=== PATIENT | male | born 1960 | race African-American/Black ===

== ENCOUNTER 2019-10-24 19:19 | Inpatient (IN) | payer OTHER, MEDICAID ==
[~2019-10-24] VITALS: Ht 182.9 cm; Wt 91.6 kg
[~2019-10-24 19:19] MED LIST: CALCIUM CHLORIDE 1GM/10ML SYR IV ONE; DEXTROSE 50% WATER 50ML VIAL IV ONE; EPINEPHRINE 0.1MG/ML (1:10,000) 10ML SYR ONE; ETOMIDATE 2MG/ML 10ML VIAL IV ONE; SODIUM BICARBONATE 8.4% MEQ/ML 50ML VIAL IV ONE; SODIUM CHLORIDE 0.9% 10ML VIAL ONE; VECURONIUM BROMIDE 10 MG/VIAL IV ONE
[2019-10-24] MEDS ORDERED: SODIUM CHLORIDE 0.9% 1,000 ML IV ONE (20:00)
[2019-10-24] MEDS ORDERED: MIDAZOLAM HCL 50 MG in DEXTROSE 5% WATER 40 ML IV ONE ×2 (20:00→20:15)
[2019-10-24 20:15] LABS: BASOPHILS % 0.3 % (0.0-2.0); HEMATOCRIT. 46.4 % (42.0-52.0); LYMPHOCYTES % 12.8 % (20.0-50.0); MEAN CORPUSCULAR HEMOGLOBIN 28.3 pg (28.0-32.0); MEAN CORPUSCULAR VOLUME 87.9 fL (80.0-94.0); MONOCYTES % 6.8 % (2.0-8.0); NEUTROPHILS % 80.1 % (40.0-76.0); PLATELET 103 x1000/uL (130-400); RED BLOOD CELL COUNT 5.28 mill/uL (4.7-6.1); RED CELL DISTRIBUTION WIDTH 17.5 % (11.6-14.6)
[2019-10-24 20:19] LABS: CLARITY URINE CLOUDY (CLEAR); COLOR URINE ORANGE (YELLOW); KETONES URINE NEGATIVE (NEGATIVE); LEUKOCYTE ESTERASE URINE NEGATIVE (NEGATIVE); NITRITE URINE POSITIVE (NEGATIVE); OCCULT BLOOD URINE TRACE (NEGATIVE); PROTEIN URINE 2+ (NEGATIVE); SPECIFIC GRAVITY URINE 1.015 (1.005-1.030)
[2019-10-24 20:31] LABS: INR 2.6; PROTHROMBIN TIME 25.4 sec (9.6-11.0)
[2019-10-24 20:39] LABS: *AMPHETAMINES SCREEN URINE NEGATIVE (NEGATIVE)
[2019-10-24 20:41] LABS: *BARBITURATES SCREEN URINE NEGATIVE (NEGATIVE); *BENZODIAZEPINES SCREEN URINE NEGATIVE (NEGATIVE); *COCAINE SCREEN URINE NEGATIVE (NEGATIVE); CANNABINOID URINE SCREEN NEGATIVE (NEGATIVE); METHADONE URINE SCREEN NEGATIVE (NEGATIVE); OPIATES URINE SCREEN NEGATIVE (NEGATIVE); PHENCYCLIDINE URINE SCREEN NEGATIVE (NEGATIVE)
[2019-10-24] MEDS ORDERED: CEFTRIAXONE 1 G PREMIX 50 ML IV ONE (22:00)
[2019-10-24] MEDS ORDERED: NOREPINEPHRINE 4 MG in DEXT 5% WATER 246 ML IV ONE ×2 (22:00→22:15)
[2019-10-24 22:09] LABS: CHLORIDE 101 mEq/L (98-107)
[2019-10-24 22:14] LABS: ETHANOL BLOOD < 10 mg/dL
[2019-10-24] MEDS ORDERED: DEXTROSE 50% WATER 50ML SYRINGE IV ONE ×3 (22:23→23:30)
[2019-10-24] MEDS ORDERED: DEXT 10% WATER 1,000 ML IV ONE (22:30)
[2019-10-24] MEDS ORDERED: DOPAMINE 400MG/250ML PREMIX 250 ML IV ONE (23:30)
[2019-10-24] MEDS ORDERED: VANCOMYCIN 1 G PREMIX 200 ML IV SCH (23:45)
[2019-10-24] MEDS ORDERED: LORAZEPAM 2MG/ML CPJ IV PRN (23:45)
[2019-10-24] MEDS ORDERED: HYDRALAZINE 20MG/ML VIAL IV PRN (23:45)
[2019-10-24] MEDS ORDERED: GUAIFENESIN 200MG/10ML SUGAR FREE UDC PO PRN (23:45)
[2019-10-24] MEDS ORDERED: BLOOD SUGAR DIAGNOSTIC STRIP TEST SCH (23:45)
[2019-10-24] MEDS ORDERED: NOREPINEPHRINE 4MG/250ML PMX 250 ML IV SCH (23:45)
[2019-10-24] MEDS ORDERED: MAGNESIUM/ALUMINUM HYDROXIDE/SIMETHICONE 30ML UDC PO PRN (23:45)
[2019-10-24] MEDS ORDERED: HYDROCODONE/ACETAMINOPHEN 10/325MG TABLET PO PRN (23:45)
[2019-10-24] MEDS ORDERED: MORPHINE SULFATE 2 MG/ML CPJ (NOT FOR IM USE) IV PRN (23:45)
[2019-10-24] MEDS ORDERED: PIPERACILLIN/TAZ 3.375G PREMIX 50 ML IV SCH (23:45)
[2019-10-24] MEDS ORDERED: ONDANSETRON HCL 4MG/2ML INJ IV PRN (23:45)
[2019-10-24] MEDS ORDERED: NA PHOS,M-B/NA PHOS,DI-BA ENEMA 118ML PR PRN (23:45)
[2019-10-24] MEDS ORDERED: CLONIDINE 0.1MG TABLET PO PRN (23:45)
[2019-10-25] VITALS (60 sets, daily range): BP systolic 83–131; BP diastolic 26–77
[2019-10-25] MEDS: DEXT 10% WATER 1,000 ML IV SCH ×2 (00:25→21:15)
[2019-10-25] MEDS ORDERED: PIPERACILLIN/TAZ 3.375G PREMIX 50 ML IV NR (00:30)
[2019-10-25] MEDS ORDERED: SODIUM CHLORIDE 0.9% 500 ML IV ONE (00:45)
[2019-10-25] MEDS ORDERED: DOPAMINE 400MG/250ML PREMIX 250 ML IV ONE (03:15)
[2019-10-25] MEDS ORDERED: NOREPINEPHRINE 4 MG in DEXT 5% WATER 246 ML IV ONE (03:30)
[2019-10-25] MEDS ORDERED: NOREPINEPHRINE 4 MG in DEXTROSE 5% WATER 250 ML IV PRN (04:00)
[2019-10-25] MEDS: INSULIN LISPRO 100 UNITS/ML SUBCUT SCH ×5 (04:00→20:00)
[2019-10-25] MEDS: BLOOD SUGAR DIAGNOSTIC STRIP TEST SCH ×5 (04:37→18:16)
[2019-10-25 05:20] LABS: BG CARBOXYHEMOGLOBIN 1.1 % (0.5-1.5); BG DEOXYHEMOGLOBIN 12.6 % (0.0-5.0); BG FRACTION INSPIRED OXYGEN 100; BG HCO3 ACT 30.1 mmol/L (22.0-26.0); BG METHEMOGLOBIN 0.3 % (0.0-1.5); BG OXYGEN SATURATION 87.2 % (92.0-98.5); BG PCO2 55.8 mmHg (35.0-45.0); BG PO2 58.1 mmHg (75.0-100.0); BG SAMPLE SITE RIGHT RADIAL; BG TIDAL VOLUME(mL) 600 mL; BG TOTAL HEMOGLOBIN 15.4 g/dL (12.0-18.0); BG VENT MODE VENT - A/C; BG VENT RATE 16 set
[2019-10-25] MEDS ORDERED: VANCOMYCIN 1 G PREMIX 200 ML IV NR (06:00)
[2019-10-25] MEDS: IPRATROPIUM/ALBUTEROL 0.5-3(2.5)MG/3ML NEB NEB PRN (08:13)
[2019-10-25] MEDS: PIPERACILLIN/TAZ 3.375G PREMIX 50 ML IV SCH ×3 (08:42→18:16)
[2019-10-25] MEDS: SODIUM CHLORIDE 0.9% INJ 3ML FLUSH IVF SCH ×3 (08:44→21:15)
[2019-10-25 08:53] LABS: CHLORIDE 102 mEq/L (98-107)
[2019-10-25 08:56] LABS: HEMATOCRIT. 47.7 % (42.0-52.0); HEMOGLOBIN. 14.9 g/dL (14.0-18.0); MEAN CORPUSCULAR HEMOGLOBIN 27.7 pg (28.0-32.0); MEAN CORPUSCULAR VOLUME 88.5 fL (80.0-94.0); RED BLOOD CELL COUNT 5.38 mill/uL (4.7-6.1); RED CELL DISTRIBUTION WIDTH 17.4 % (11.6-14.6)
[2019-10-25 09:00] LABS: LDL CHOLESTEROL 20 mg/dL (5-100)
[2019-10-25 09:01] LABS: HDL CHOLESTEROL 36 mg/dL (40-59)
[2019-10-25] MEDS: PANTOPRAZOLE SODIUM 40 MG/VIAL IV SCH (09:01)
[2019-10-25 09:02] LABS: CREATINE KINASE 655 IU/L (39-308)
[2019-10-25] MEDS: DEXTROSE 50% WATER 50ML SYRINGE IV PRN ×2 (09:05→10:22)
[2019-10-25] MEDS: PHENYLEPHRINE 40 MG in DEXT 5% WATER 246 ML IV PRN ×4 (09:27→20:39)
[2019-10-25 10:26] LABS: T4 FREE 0.86 ng/dL (0.76-1.46)
[2019-10-25] MEDS ORDERED: PROPOFOL 10MG/ML 100ML 100 ML IV PRN (10:30)
[2019-10-25 11:16] LABS: PLATELET 46 x1000/uL (130-400); PLATELET ESTIMATE MARKEDLY DECREASED
[2019-10-25] MEDS: NOREPINEPHRINE 16 MG in DEXT 5% WATER 234 ML IV PRN ×2 (12:12→17:08)
[2019-10-25] MEDS: IPRATROPIUM/ALBUTEROL 0.5-3(2.5)MG/3ML NEB HHN SCH ×3 (12:30→20:01)
[2019-10-25 16:13] LABS: HEMATOCRIT. 45.8 % (42.0-52.0); HEMOGLOBIN. 14.9 g/dL (14.0-18.0); MEAN CORPUSCULAR HEMOGLOBIN 28.2 pg (28.0-32.0); MEAN CORPUSCULAR VOLUME 86.8 fL (80.0-94.0); MEAN PLATELET VOLUME 11.1 fl (7.4-10.4); PLATELET 51 x1000/uL (130-400); RED BLOOD CELL COUNT 5.27 mill/uL (4.7-6.1); RED CELL DISTRIBUTION WIDTH 17.6 % (11.6-14.6)
[2019-10-25 16:32] LABS: CREATINE KINASE 818 IU/L (39-308)
[2019-10-25 16:33] LABS: CREATINE KINASE MB FRACTION 7.9 ng/mL (0.5-3.6)
[2019-10-25 17:08] LABS: NUCLEATED RED BLOOD CELLS 3 /100 WBC; PLATELET ESTIMATE MARKEDLY DECREASED
[2019-10-25] MEDS: VANCOMYCIN 1250MG in DEXTROSE 5% WATER 250ML IV SCH (20:46)
[2019-10-25] MEDS ORDERED: VANCOMYCIN 1250MG in DEXTROSE 5% WATER 250ML IV SCH (21:00)
[2019-10-25] MEDS: THIAMINE HCL 100MG TABLET PO SCH (21:15)
[2019-10-25] MEDS ORDERED: DEXT 10% WATER 1,000 ML IV SCH (22:30)
[2019-10-26] VITALS (90 sets, daily range): BP systolic 66–133; BP diastolic 24–96
[2019-10-26] MEDS: IPRATROPIUM/ALBUTEROL 0.5-3(2.5)MG/3ML NEB HHN SCH ×6 (00:03→20:22)
[2019-10-26] MEDS: DEXTROSE 50% WATER 50ML SYRINGE IV PRN ×5 (00:05→20:30)
[2019-10-26] MEDS: BLOOD SUGAR DIAGNOSTIC STRIP TEST SCH ×10 (00:06→17:36)
[2019-10-26] MEDS: PIPERACILLIN/TAZ 3.375G PREMIX 50 ML IV SCH ×3 (00:06→12:51)
[2019-10-26] MEDS: PHENYLEPHRINE 40 MG in DEXT 5% WATER 246 ML IV PRN ×5 (01:16→21:38)
[2019-10-26] MEDS: NOREPINEPHRINE 16 MG in DEXT 5% WATER 234 ML IV PRN ×2 (03:07→12:31)
[2019-10-26] MEDS ORDERED: VASOPRESSIN 10 UNIT in SODIUM CHLORIDE 0.9% 99.5 ML IV PRN (04:00)
[2019-10-26] MEDS: INSULIN LISPRO 100 UNITS/ML SUBCUT SCH ×6 (04:00→20:00)
[2019-10-26 06:10] LABS: HEMATOCRIT. 45.3 % (42.0-52.0); HEMOGLOBIN. 14.6 g/dL (14.0-18.0); MEAN CORPUSCULAR HEMOGLOBIN 28.1 pg (28.0-32.0); RED CELL DISTRIBUTION WIDTH 17.5 % (11.6-14.6)
[2019-10-26] MEDS: SODIUM CHLORIDE 0.9% INJ 3ML FLUSH IVF SCH ×3 (06:24→22:00)
[2019-10-26 06:35] LABS: CHLORIDE 100 mEq/L (98-107)
[2019-10-26 06:55] LABS: INR 2.5; PROTHROMBIN TIME 24.9 sec (9.6-11.0)
[2019-10-26 08:11] LABS: BG BASE EXCESS 3.3 mmol/L (-2.0-2.0); BG CARBOXYHEMOGLOBIN 0.4 % (0.5-1.5); BG DEOXYHEMOGLOBIN 2.9 % (0.0-5.0); BG FRACTION INSPIRED OXYGEN 100; BG HCO3 ACT 29.5 mmol/L (22.0-26.0); BG METHEMOGLOBIN 0.3 % (0.0-1.5); BG OXYGEN SATURATION 97.1 % (92.0-98.5); BG OXYHEMOGLOBIN 96.4 % (94.0-97.0); BG PCO2 51.1 mmHg (35.0-45.0); BG PH 7.379 (7.350-7.450); BG PO2 97.5 mmHg (75.0-100.0); BG SAMPLE SITE RIGHT RADIAL; BG TIDAL VOLUME(mL) 600 mL; BG TOTAL HEMOGLOBIN 14.4 g/dL (12.0-18.0); BG VENT MODE VENT - A/C; BG VENT RATE 16 set
[2019-10-26] MEDS ORDERED: PROPOFOL 10MG/ML 100ML 100 ML IV PRN (09:00)
[2019-10-26] MEDS: PANTOPRAZOLE SODIUM 40 MG/VIAL IV SCH (09:27)
[2019-10-26] MEDS: VANCOMYCIN 1250MG in DEXTROSE 5% WATER 250ML IV SCH ×2 (09:27→20:30)
[2019-10-26] MEDS: THIAMINE HCL 100MG TABLET PO SCH (09:27)
[2019-10-26] MEDS: MIDODRINE HCL 5MG TABLET PO SCH ×3 (09:47→17:36)
[2019-10-26 10:22] LABS: PLATELET 26 x1000/uL (130-400)
[2019-10-26 10:40] LABS: NUCLEATED RED BLOOD CELLS 1 /100 WBC
[2019-10-26 10:41] LABS: PLATELET ESTIMATE MARKEDLY DECREASED
[2019-10-26] MEDS: DEXTROSE 20% WATER 500 ML IV SCH ×2 (11:09→21:19)
[2019-10-26] MEDS: PIPERACILLIN/TAZOBACTAM 3.375 G in DEXT 5% WATER 100 ML IV SCH (17:35)
[2019-10-27] VITALS (94 sets, daily range): BP systolic 49–135; BP diastolic 23–88
[2019-10-27] MEDS: PIPERACILLIN/TAZOBACTAM 3.375 G in DEXT 5% WATER 100 ML IV SCH ×4 (00:02→18:21)
[2019-10-27] MEDS: IPRATROPIUM/ALBUTEROL 0.5-3(2.5)MG/3ML NEB HHN SCH ×6 (00:18→20:18)
[2019-10-27] MEDS: NOREPINEPHRINE 16 MG in DEXT 5% WATER 234 ML IV PRN (01:06)
[2019-10-27] MEDS: PHENYLEPHRINE 40 MG in DEXT 5% WATER 246 ML IV PRN ×4 (01:31→12:00)
[2019-10-27] MEDS: BLOOD SUGAR DIAGNOSTIC STRIP TEST SCH ×10 (02:00→20:22)
[2019-10-27] MEDS: INSULIN LISPRO 100 UNITS/ML SUBCUT SCH ×6 (04:00→20:00)
[2019-10-27 06:22] LABS: HEMATOCRIT. 43.4 % (42.0-52.0); HEMOGLOBIN. 14.1 g/dL (14.0-18.0); MEAN CORPUSCULAR VOLUME 86.3 fL (80.0-94.0); MEAN PLATELET VOLUME 9.7 fl (7.4-10.4); RED BLOOD CELL COUNT 5.02 mill/uL (4.7-6.1); RED CELL DISTRIBUTION WIDTH 17.9 % (11.6-14.6)
[2019-10-27] MEDS: SODIUM CHLORIDE 0.9% INJ 3ML FLUSH IVF SCH ×3 (06:22→22:03)
[2019-10-27 06:26] LABS: CHLORIDE 100 mEq/L (98-107)
[2019-10-27 06:35] LABS: PLATELET 11 x1000/uL (130-400)
[2019-10-27] MEDS: DEXTROSE 20% WATER 500 ML IV SCH ×2 (06:58→18:31)
[2019-10-27 10:36] LABS: BG BASE EXCESS 7.4 mmol/L (-2.0-2.0); BG DEOXYHEMOGLOBIN 1.5 % (0.0-5.0); BG FRACTION INSPIRED OXYGEN 100; BG HCO3 ACT 32.9 mmol/L (22.0-26.0); BG METHEMOGLOBIN 0.3 % (0.0-1.5); BG OXYGEN SATURATION 98.5 % (92.0-98.5); BG OXYHEMOGLOBIN 97.2 % (94.0-97.0); BG PCO2 49.2 mmHg (35.0-45.0); BG PH 7.443 (7.350-7.450); BG PO2 127.1 mmHg (75.0-100.0); BG SAMPLE SITE RIGHT RADIAL; BG TIDAL VOLUME(mL) 600 mL; BG TOTAL HEMOGLOBIN 14.6 g/dL (12.0-18.0); BG VENT MODE VENT - A/C; BG VENT RATE 16 set
[2019-10-27] MEDS: THIAMINE HCL 100MG TABLET PO SCH (11:42)
[2019-10-27] MEDS: MIDODRINE HCL 5MG TABLET PO SCH ×3 (11:43→18:30)
[2019-10-27 11:49] LABS: HEPATITIS B SURFACE ANTIGEN NEGATIVE
[2019-10-27 11:53] LABS: NUCLEATED RED BLOOD CELLS 2 /100 WBC; PLATELET ESTIMATE MARKEDLY DECREASED
[2019-10-27 12:18] LABS: HEPATITIS A AB IGM NEGATIVE (NEGATIVE)
[2019-10-27] MEDS ORDERED: VANCOMYCIN 1 G PREMIX 200 ML IV SCH (12:45)
[2019-10-27] MEDS ORDERED: FUROSEMIDE 40MG/4ML VIAL IVP SCH (12:45)
[2019-10-27] MEDS: CEFTRIAXONE 1 G PREMIX 50 ML IV SCH (13:30)
[2019-10-27] MEDS: VANCOMYCIN 1 G PREMIX 200 ML IV SCH ×2 (13:30→22:09)
[2019-10-27] MEDS: PANTOPRAZOLE SODIUM 40 MG/VIAL IV SCH (13:31)
[2019-10-27] MEDS ORDERED: CHLORHEXIDINE GLUCONATE 4% EXTERNAL USE TOP SCH ×2 (14:00→21:00)
[2019-10-27] MEDS ORDERED: PHENYLEPHRINE 80 MG in DEXT 5% WATER 492 ML IV PRN (18:27)
[2019-10-27] MEDS: DIPHENHYDRAMINE 50MG/ML VIAL IV PRN (22:09)
[2019-10-27] MEDS: PHENYLEPHRINE 80 MG in DEXT 5% WATER 492 ML IV PRN (22:30)
[2019-10-28] VITALS (94 sets, daily range): BP systolic 73–149; BP diastolic 25–113
[2019-10-28] MEDS: INSULIN LISPRO 100 UNITS/ML SUBCUT SCH
[2019-10-28] MEDS: IPRATROPIUM/ALBUTEROL 0.5-3(2.5)MG/3ML NEB HHN SCH ×6 (00:21→20:19)
[2019-10-28] MEDS: PIPERACILLIN/TAZOBACTAM 3.375 G in DEXT 5% WATER 100 ML IV SCH ×4 (00:59→17:27)
[2019-10-28] MEDS ORDERED: NOREPINEPHRINE 4 MG in DEXT 5% WATER 246 ML IV ONE (01:00)
[2019-10-28] MEDS ORDERED: INSULIN LISPRO 100 UNITS/ML SUBCUT PRN (02:30)
[2019-10-28] MEDS: BLOOD SUGAR DIAGNOSTIC STRIP TEST SCH ×9 (02:32→18:00)
[2019-10-28] MEDS: DEXTROSE 20% WATER 500 ML IV SCH (02:38)
[2019-10-28] MEDS: PHENYLEPHRINE 80 MG in DEXT 5% WATER 492 ML IV PRN ×3 (03:13→15:23)
[2019-10-28] MEDS: SODIUM CHLORIDE 0.9% INJ 3ML FLUSH IVF SCH ×3 (05:33→21:44)
[2019-10-28 05:55] LABS: HEMATOCRIT. 40.3 % (42.0-52.0); HEMOGLOBIN. 13.2 g/dL (14.0-18.0); MEAN CORPUSCULAR HEMOGLOBIN 27.8 pg (28.0-32.0); MEAN CORPUSCULAR VOLUME 84.9 fL (80.0-94.0); RED BLOOD CELL COUNT 4.74 mill/uL (4.7-6.1); RED CELL DISTRIBUTION WIDTH 17.6 % (11.6-14.6)
[2019-10-28] MEDS ORDERED: CEFAZOLIN 2,000 MG in DEXTROSE 5% WATER 50 ML IV SCH (06:00)
[2019-10-28] MEDS ORDERED: EPINEPHRINE 4 MG in DEXT 5% WATER 246 ML IV ONE (06:00)
[2019-10-28] MEDS ORDERED: NOREPINEPHRINE 4MG/250ML PMX 250 ML IV ONE (06:00)
[2019-10-28 06:02] LABS: CHLORIDE 96 mEq/L (98-107)
[2019-10-28 06:26] LABS: INR 1.9; PROTHROMBIN TIME 18.7 sec (9.6-11.0)
[2019-10-28 07:31] LABS: BG BASE EXCESS 7.9 mmol/L (-2.0-2.0); BG DEOXYHEMOGLOBIN 8.9 % (0.0-5.0); BG FRACTION INSPIRED OXYGEN 70; BG HCO3 ACT 34.2 mmol/L (22.0-26.0); BG METHEMOGLOBIN 0.2 % (0.0-1.5); BG OXYHEMOGLOBIN 89.9 % (94.0-97.0); BG PCO2 54.4 mmHg (35.0-45.0); BG PH 7.416 (7.350-7.450); BG SAMPLE SITE RIGHT RADIAL; BG TIDAL VOLUME(mL) 600 mL; BG TOTAL HEMOGLOBIN 13.8 g/dL (12.0-18.0); BG VENT MODE VENT - A/C; BG VENT RATE 16 set
[2019-10-28] MEDS: NOREPINEPHRINE 16 MG in DEXT 5% WATER 234 ML IV PRN (07:46)
[2019-10-28] MEDS: MIDODRINE HCL 5MG TABLET PO SCH ×3 (07:58→17:27)
[2019-10-28] MEDS: THIAMINE HCL 100MG TABLET PO SCH (07:58)
[2019-10-28 08:15] LABS: MEAN PLATELET VOLUME 9.3 fl (7.4-10.4); PLATELET ESTIMATE DECREASED
[2019-10-28 08:16] LABS: PLATELET 69 x1000/uL (130-400)
[2019-10-28] MEDS: WATER DEXTROSE IV SCH ×2 (09:55→21:43)
[2019-10-28] MEDS: DEXTROSE IV SCH ×2 (09:55→21:43)
[2019-10-28] MEDS: WATER IV SCH ×2 (09:55→21:43)
[2019-10-28] MEDS ORDERED: WATER DEXTROSE IV SCH (10:00)
[2019-10-28] MEDS ORDERED: WATER IV SCH ×2 (10:00→15:00)
[2019-10-28] MEDS ORDERED: DEXTROSE IV SCH (10:00)
[2019-10-28] MEDS ORDERED: SODIUM CHLORIDE 0.9% 10ML VIAL ONE ×2 (10:02→10:03)
[2019-10-28] MEDS ORDERED: VECURONIUM BROMIDE 10 MG/VIAL IV ONE (10:02)
[2019-10-28] MEDS ORDERED: PHENYLEPHRINE HCL 10 MG/ML 1ML (IV VIAL) IV ONE (10:03)
[2019-10-28] MEDS ORDERED: FENTANYL CITRATE/PF 50MCG/ML 2ML VIAL ONE (10:06)
[2019-10-28] MEDS ORDERED: MIDAZOLAM HCL 2 MG/2 ML VIAL ONE (10:06)
[2019-10-28] MEDS ORDERED: LABETALOL HCL 5MG/ML VIAL 20ML IV ONE (10:07)
[2019-10-28] MEDS ORDERED: ESMOLOL HCL 10MG/ML 10ML VIAL IV ONE (10:08)
[2019-10-28] MEDS: VANCOMYCIN 1 G PREMIX 200 ML IV SCH ×2 (11:00→21:44)
[2019-10-28] MEDS ORDERED: BUPIVACAINE/EPINEPH/PF 0.25%/0.0005 10ML ONE (11:17)
[2019-10-28] MEDS: CEFTRIAXONE 1 G PREMIX 50 ML IV SCH (12:00)
[2019-10-28] MEDS: PANTOPRAZOLE SODIUM 40 MG/VIAL IV SCH (14:24)
[2019-10-28] MEDS ORDERED: CALCIUM GLUCONATE IV SCH (15:00)
[2019-10-28] MEDS ORDERED: DEXT 5% IV SCH (15:00)
[2019-10-28] MEDS: ALBUMIN HUMAN 25GM/100ML (25%) IV SCH ×2 (17:27→21:43)
[2019-10-28] MEDS ORDERED: FUROSEMIDE 40MG/4ML VIAL IVP NR (17:48)
[2019-10-28 18:04] LABS: BG BASE EXCESS 5.4 mmol/L (-2.0-2.0); BG CARBOXYHEMOGLOBIN 1.3 % (0.5-1.5); BG DEOXYHEMOGLOBIN 0.8 % (0.0-5.0); BG FRACTION INSPIRED OXYGEN 70; BG HCO3 ACT 30.5 mmol/L (22.0-26.0); BG METHEMOGLOBIN 0.2 % (0.0-1.5); BG OXYGEN SATURATION 99.2 % (92.0-98.5); BG OXYHEMOGLOBIN 97.7 % (94.0-97.0); BG PCO2 46.5 mmHg (35.0-45.0); BG PH 7.435 (7.350-7.450); BG PO2 161.4 mmHg (75.0-100.0); BG SAMPLE SITE A-LINE; BG TIDAL VOLUME(mL) 600 mL; BG TOTAL HEMOGLOBIN 13.1 g/dL (12.0-18.0); BG VENT MODE VENT - A/C; BG VENT RATE 16 set
[2019-10-29] VITALS (100 sets, daily range): BP systolic 56–133; BP diastolic 23–92
[2019-10-29] MEDS: BLOOD SUGAR DIAGNOSTIC STRIP TEST SCH ×10 (00:09→17:52)
[2019-10-29] MEDS: IPRATROPIUM/ALBUTEROL 0.5-3(2.5)MG/3ML NEB HHN SCH ×6 (00:10→20:33)
[2019-10-29] MEDS: ALBUMIN HUMAN 25GM/100ML (25%) IV SCH (00:14)
[2019-10-29] MEDS: PIPERACILLIN/TAZOBACTAM 3.375 G in DEXT 5% WATER 100 ML IV SCH ×4 (00:15→17:35)
[2019-10-29] MEDS: SODIUM CHLORIDE 0.9% INJ 3ML FLUSH IVF SCH ×3 (05:31→22:42)
[2019-10-29] MEDS: WATER DEXTROSE IV SCH ×3 (05:33→17:35)
[2019-10-29] MEDS: WATER IV SCH ×3 (05:33→17:35)
[2019-10-29] MEDS: DEXTROSE IV SCH ×3 (05:33→17:35)
[2019-10-29] MEDS: PHENYLEPHRINE 80 MG in DEXT 5% WATER 492 ML IV PRN ×2 (05:36→23:24)
[2019-10-29 05:42] LABS: HEMATOCRIT. 36.4 % (42.0-52.0); MEAN CORPUSCULAR HEMOGLOBIN 27.6 pg (28.0-32.0); MEAN CORPUSCULAR VOLUME 84.2 fL (80.0-94.0); MEAN PLATELET VOLUME 9.6 fl (7.4-10.4); RED BLOOD CELL COUNT 4.32 mill/uL (4.7-6.1); RED CELL DISTRIBUTION WIDTH 17.5 % (11.6-14.6)
[2019-10-29 05:47] LABS: INR 1.7; PARTIAL THROMBOPLASTIN TIME 39.4 sec (23.4-31.0); PROTHROMBIN TIME 16.8 sec (9.6-11.0)
[2019-10-29 06:17] LABS: CHLORIDE 93 mEq/L (98-107)
[2019-10-29 07:58] LABS: BG BASE EXCESS 6.7 mmol/L (-2.0-2.0); BG CARBOXYHEMOGLOBIN 1.7 % (0.5-1.5); BG DEOXYHEMOGLOBIN 1.4 % (0.0-5.0); BG FRACTION INSPIRED OXYGEN 50; BG HCO3 ACT 32.1 mmol/L (22.0-26.0); BG METHEMOGLOBIN 0.3 % (0.0-1.5); BG OXYGEN SATURATION 98.6 % (92.0-98.5); BG OXYHEMOGLOBIN 96.6 % (94.0-97.0); BG PCO2 49.2 mmHg (35.0-45.0); BG PH 7.433 (7.350-7.450); BG PO2 115.4 mmHg (75.0-100.0); BG PRESSURE SUPPORT 15; BG SAMPLE SITE A-LINE; BG TIDAL VOLUME(mL) 600 mL; BG TOTAL HEMOGLOBIN 13.3 g/dL (12.0-18.0); BG VENT MODE VENT - SIMV; BG VENT RATE 12 set
[2019-10-29] MEDS ORDERED: POTASSIUM CHLORIDE 20MEQ/PACKET PO SCH ×2 (09:00→12:00)
[2019-10-29] MEDS ORDERED: FUROSEMIDE 100MG/10ML VIAL IVP SCH (09:00)
[2019-10-29 09:51] LABS: CREATINE KINASE 70 IU/L (39-308)
[2019-10-29] MEDS: THIAMINE HCL 100MG TABLET PO SCH (09:58)
[2019-10-29] MEDS: PANTOPRAZOLE SODIUM 40 MG/VIAL IV SCH (09:58)
[2019-10-29] MEDS: MIDODRINE HCL 5MG TABLET PO SCH ×3 (09:59→17:35)
[2019-10-29 10:41] LABS: PLATELET ESTIMATE MARKEDLY DECREASED
[2019-10-29 10:43] LABS: PLATELET 27 x1000/uL (130-400)
[2019-10-29] MEDS: METHYLPHENIDATE HCL 5MG TABLET PO SCH ×3 (11:59→17:35)
[2019-10-29] MEDS: CEFTRIAXONE 1 G PREMIX 50 ML IV SCH (11:59)
[2019-10-29] MEDS: VANCOMYCIN 1 G PREMIX 200 ML IV SCH ×2 (13:02→23:23)
[2019-10-29] MEDS: DEXTROSE 20% WATER 500 ML IV SCH (17:37)
[2019-10-30] VITALS (59 sets, daily range): BP systolic 79–132; BP diastolic 23–86
[2019-10-30] MEDS: IPRATROPIUM/ALBUTEROL 0.5-3(2.5)MG/3ML NEB HHN SCH ×6 (00:10→20:47)
[2019-10-30] MEDS: BLOOD SUGAR DIAGNOSTIC STRIP TEST SCH ×10 (00:41→18:00)
[2019-10-30] MEDS: PIPERACILLIN/TAZOBACTAM 3.375 G in DEXT 5% WATER 100 ML IV SCH ×3 (00:41→12:02)
[2019-10-30] MEDS: DEXTROSE 20% WATER 500 ML IV SCH ×2 (04:35→16:43)
[2019-10-30] MEDS: SODIUM CHLORIDE 0.9% INJ 3ML FLUSH IVF SCH ×3 (05:01→22:00)
[2019-10-30 06:53] LABS: CHLORIDE 93 mEq/L (98-107)
[2019-10-30 07:14] LABS: HEMATOCRIT. 39.8 % (42.0-52.0); HEMOGLOBIN. 12.8 g/dL (14.0-18.0); MEAN CORPUSCULAR HEMOGLOBIN 27.3 pg (28.0-32.0); MEAN CORPUSCULAR VOLUME 85.1 fL (80.0-94.0); MEAN PLATELET VOLUME 9.2 fl (7.4-10.4); RED BLOOD CELL COUNT 4.67 mill/uL (4.7-6.1); RED CELL DISTRIBUTION WIDTH 17.4 % (11.6-14.6)
[2019-10-30 07:25] LABS: PLATELET 20 x1000/uL (130-400)
[2019-10-30 07:38] LABS: BG BASE EXCESS 7.3 mmol/L (-2.0-2.0); BG BILEVEL POS AIRWAY PRESSURE 5; BG CARBOXYHEMOGLOBIN 1.4 % (0.5-1.5); BG DEOXYHEMOGLOBIN 1.5 % (0.0-5.0); BG FRACTION INSPIRED OXYGEN 40; BG HCO3 ACT 31.8 mmol/L (22.0-26.0); BG METHEMOGLOBIN 0.1 % (0.0-1.5); BG OXYGEN SATURATION 98.5 % (92.0-98.5); BG PCO2 44.5 mmHg (35.0-45.0); BG PH 7.472 (7.350-7.450); BG PO2 124.7 mmHg (75.0-100.0); BG PRESSURE SUPPORT 12; BG SAMPLE SITE RIGHT RADIAL; BG TIDAL VOLUME(mL) 600 mL; BG TOTAL HEMOGLOBIN 13.2 g/dL (12.0-18.0); BG VENT MODE VENT - SIMV; BG VENT RATE 8 set
[2019-10-30 08:17] LABS: HIV SCREEN 4G Non Reactive (Non Reactive)
[2019-10-30] MEDS: METHYLPHENIDATE HCL 5MG TABLET PO SCH ×3 (08:52→17:29)
[2019-10-30] MEDS: THIAMINE HCL 100MG TABLET PO SCH (08:52)
[2019-10-30] MEDS: MIDODRINE HCL 5MG TABLET PO SCH ×3 (08:52→17:29)
[2019-10-30] MEDS: PANTOPRAZOLE SODIUM 40 MG/VIAL IV SCH (08:52)
[2019-10-30 09:53] LABS: PLATELET ESTIMATE MARKEDLY DECREASED
[2019-10-30] MEDS: VANCOMYCIN 1 G PREMIX 200 ML IV SCH (10:50)
[2019-10-30] MEDS ORDERED: FUROSEMIDE 100MG/10ML VIAL IVP NR (11:36)
[2019-10-30] MEDS: CEFTRIAXONE 1 G PREMIX 50 ML IV SCH (12:02)
[2019-10-30 12:26] LABS: BG BASE EXCESS 6.6 mmol/L (-2.0-2.0); BG CARBOXYHEMOGLOBIN 1.1 % (0.5-1.5); BG DEOXYHEMOGLOBIN 1.9 % (0.0-5.0); BG FRACTION INSPIRED OXYGEN 40; BG HCO3 ACT 31.6 mmol/L (22.0-26.0); BG METHEMOGLOBIN 0.2 % (0.0-1.5); BG OXYGEN SATURATION 98.1 % (92.0-98.5); BG OXYHEMOGLOBIN 96.8 % (94.0-97.0); BG PCO2 46.9 mmHg (35.0-45.0); BG PH 7.447 (7.350-7.450); BG PO2 112.2 mmHg (75.0-100.0); BG PRESSURE SUPPORT 8; BG SAMPLE SITE A-LINE; BG TOTAL HEMOGLOBIN 13.1 g/dL (12.0-18.0); BG VENT MODE VENT - CPAP
[2019-10-30] MEDS: MEROPENEM 1,000 MG in SODIUM CHLORIDE 0.9% 100 ML IV SCH (17:30)
[2019-10-31] VITALS (35 sets, daily range): BP systolic 84–123; BP diastolic 37–86
[2019-10-31] MEDS: BLOOD SUGAR DIAGNOSTIC STRIP TEST SCH ×8 (00:04→21:03)
[2019-10-31] MEDS: MEROPENEM 1,000 MG in SODIUM CHLORIDE 0.9% 100 ML IV SCH ×3 (00:04→16:43)
[2019-10-31] MEDS: IPRATROPIUM/ALBUTEROL 0.5-3(2.5)MG/3ML NEB HHN SCH ×6 (00:52→20:48)
[2019-10-31] MEDS: DEXTROSE 20% WATER 500 ML IV SCH ×2 (01:14→13:21)
[2019-10-31 05:13] LABS: HEMATOCRIT. 37.6 % (42.0-52.0); HEMOGLOBIN. 12.2 g/dL (14.0-18.0); MEAN CORPUSCULAR HEMOGLOBIN 27.3 pg (28.0-32.0); MEAN CORPUSCULAR VOLUME 83.9 fL (80.0-94.0); MEAN PLATELET VOLUME 9.1 fl (7.4-10.4); RED BLOOD CELL COUNT 4.48 mill/uL (4.7-6.1); RED CELL DISTRIBUTION WIDTH 17.2 % (11.6-14.6)
[2019-10-31 05:37] LABS: CHLORIDE 92 mEq/L (98-107)
[2019-10-31 07:08] LABS: PLATELET 21 x1000/uL (130-400)
[2019-10-31 09:08] LABS: BG BASE EXCESS 7.6 mmol/L (-2.0-2.0); BG CARBOXYHEMOGLOBIN 1.9 % (0.5-1.5); BG DEOXYHEMOGLOBIN 3.4 % (0.0-5.0); BG FRACTION INSPIRED OXYGEN 32; BG HCO3 ACT 32.6 mmol/L (22.0-26.0); BG METHEMOGLOBIN 0.1 % (0.0-1.5); BG OXYGEN SATURATION 96.5 % (92.0-98.5); BG OXYHEMOGLOBIN 94.6 % (94.0-97.0); BG PCO2 47.8 mmHg (35.0-45.0); BG PH 7.452 (7.350-7.450); BG PO2 84.6 mmHg (75.0-100.0); BG SAMPLE SITE A-LINE; BG TOTAL HEMOGLOBIN 12.5 g/dL (12.0-18.0); BG VENT MODE NASAL CANNULA
[2019-10-31] MEDS ORDERED: POTASSIUM CHLORIDE INJ 40 MEQ in DEXT 5% WATER 250 ML IV NR (09:30)
[2019-10-31] MEDS: MIDODRINE HCL 5MG TABLET PO SCH ×3 (09:50→16:44)
[2019-10-31] MEDS: PANTOPRAZOLE SODIUM 40 MG/VIAL IV SCH (09:50)
[2019-10-31] MEDS: THIAMINE HCL 100MG TABLET PO SCH (09:51)
[2019-10-31] MEDS: METHYLPHENIDATE HCL 5MG TABLET PO SCH ×3 (09:51→16:44)
[2019-10-31] MEDS ORDERED: VANCOMYCIN IV SCH (11:00)
[2019-10-31] MEDS ORDERED: SODIUM CHLORIDE 0.9% IV SCH (11:00)
[2019-10-31] MEDS ORDERED: FUROSEMIDE 40MG/4ML VIAL IVP NR (11:00)
[2019-10-31 11:37] LABS: PLATELET ESTIMATE MARKEDLY DECREASED
[2019-10-31] MEDS: SODIUM CHLORIDE 0.9% INJ 3ML FLUSH IVF SCH ×2 (14:00→21:07)
[2019-10-31] MEDS ORDERED: SODIUM CHLORIDE 0.9% 250 ML IV SCH (20:30)
[2019-10-31] MEDS: FUROSEMIDE 40MG TABLET PO SCH (21:03)
[2019-10-31] MEDS: ACETAMINOPHEN 325MG TABLET PO PRN (23:32)
[2019-11-01] VITALS (26 sets, daily range): BP systolic 87–126; BP diastolic 45–101
[2019-11-01] MEDS: IPRATROPIUM/ALBUTEROL 0.5-3(2.5)MG/3ML NEB HHN SCH ×6 (00:15→21:34)
[2019-11-01] MEDS: MEROPENEM 1,000 MG in SODIUM CHLORIDE 0.9% 100 ML IV SCH ×3 (03:37→16:52)
[2019-11-01 05:50] LABS: HEMATOCRIT. 35.4 % (42.0-52.0); HEMOGLOBIN. 11.6 g/dL (14.0-18.0); MEAN CORPUSCULAR HEMOGLOBIN 27.7 pg (28.0-32.0); MEAN CORPUSCULAR VOLUME 84.7 fL (80.0-94.0); RED BLOOD CELL COUNT 4.18 mill/uL (4.7-6.1); RED CELL DISTRIBUTION WIDTH 17.3 % (11.6-14.6)
[2019-11-01] MEDS: SODIUM CHLORIDE 0.9% INJ 3ML FLUSH IVF SCH ×3 (06:08→21:50)
[2019-11-01 06:15] LABS: CHLORIDE 93 mEq/L (98-107)
[2019-11-01 06:35] LABS: PLATELET 18 x1000/uL (130-400)
[2019-11-01] MEDS: BLOOD SUGAR DIAGNOSTIC STRIP TEST SCH ×4 (07:30→21:00)
[2019-11-01] MEDS: DEXTROSE 50% WATER 50ML SYRINGE IV PRN ×2 (07:31→13:04)
[2019-11-01] MEDS: PANTOPRAZOLE SODIUM 40 MG/VIAL IV SCH (08:10)
[2019-11-01] MEDS: METHYLPHENIDATE HCL 5MG TABLET PO SCH ×3 (08:11→17:21)
[2019-11-01] MEDS: THIAMINE HCL 100MG TABLET PO SCH (08:11)
[2019-11-01] MEDS: MIDODRINE HCL 5MG TABLET PO SCH ×3 (08:11→16:53)
[2019-11-01] MEDS: FUROSEMIDE 40MG TABLET PO SCH (08:11)
[2019-11-01] MEDS ORDERED: VANCOMYCIN IV SCH (09:00)
[2019-11-01] MEDS ORDERED: SODIUM CHLORIDE 0.9% IV SCH (09:00)
[2019-11-01 09:01] LABS: PLATELET ESTIMATE MARKEDLY DECREASED
[2019-11-01] MEDS: DEXT 5%/0.45% NACL 1000ML 1,000 ML IV SCH (09:45)
[2019-11-01] MEDS ORDERED: SODIUM CHLORIDE 0.9% 250 ML IV ONE (10:00)
[2019-11-01] MEDS: FUROSEMIDE 40MG/4ML VIAL IVP SCH ×2 (12:16→16:52)
[2019-11-02] VITALS (12 sets, daily range): BP systolic 91–114; BP diastolic 50–69
[2019-11-02] MEDS: MEROPENEM 1,000 MG in SODIUM CHLORIDE 0.9% 100 ML IV SCH ×3 (00:05→17:14)
[2019-11-02] MEDS: IPRATROPIUM/ALBUTEROL 0.5-3(2.5)MG/3ML NEB HHN SCH ×6 (01:20→20:41)
[2019-11-02] MEDS: BLOOD SUGAR DIAGNOSTIC STRIP TEST SCH ×4 (06:19→21:00)
[2019-11-02] MEDS: SODIUM CHLORIDE 0.9% INJ 3ML FLUSH IVF SCH ×3 (06:26→22:15)
[2019-11-02 06:54] LABS: CHLORIDE 91 mEq/L (98-107)
[2019-11-02 07:07] LABS: HEMATOCRIT. 33.6 % (42.0-52.0); MEAN CORPUSCULAR HEMOGLOBIN 27.5 pg (28.0-32.0); MEAN CORPUSCULAR VOLUME 84.3 fL (80.0-94.0); MEAN PLATELET VOLUME 10.8 fl (7.4-10.4); PLATELET 59 x1000/uL (130-400); RED BLOOD CELL COUNT 3.99 mill/uL (4.7-6.1); RED CELL DISTRIBUTION WIDTH 17.3 % (11.6-14.6)
[2019-11-02] MEDS: PANTOPRAZOLE SODIUM 40 MG/VIAL IV SCH (08:42)
[2019-11-02] MEDS: FUROSEMIDE 40MG/4ML VIAL IVP SCH ×2 (08:42→17:14)
[2019-11-02] MEDS: DEXT 5%/0.45% NACL 1000ML 1,000 ML IV SCH (08:42)
[2019-11-02] MEDS: MIDODRINE HCL 5MG TABLET PO SCH ×3 (08:44→17:14)
[2019-11-02] MEDS: METHYLPHENIDATE HCL 5MG TABLET PO SCH ×3 (08:44→17:14)
[2019-11-02] MEDS: THIAMINE HCL 100MG TABLET PO SCH (08:44)
[2019-11-02 14:49] LABS: PLATELET ESTIMATE MARKEDLY DECREASED
[2019-11-03] VITALS (12 sets, daily range): BP systolic 92–120; BP diastolic 52–70
[2019-11-03] MEDS: IPRATROPIUM/ALBUTEROL 0.5-3(2.5)MG/3ML NEB HHN SCH ×6 (00:32→20:21)
[2019-11-03] MEDS: MEROPENEM 1,000 MG in SODIUM CHLORIDE 0.9% 100 ML IV SCH ×3 (03:52→17:45)
[2019-11-03] MEDS: SODIUM CHLORIDE 0.9% INJ 3ML FLUSH IVF SCH ×3 (05:49→22:00)
[2019-11-03] MEDS: BLOOD SUGAR DIAGNOSTIC STRIP TEST SCH ×4 (05:58→21:00)
[2019-11-03 06:42] LABS: HEMATOCRIT. 32.5 % (42.0-52.0); HEMOGLOBIN. 10.5 g/dL (14.0-18.0); MEAN CORPUSCULAR HEMOGLOBIN 27.4 pg (28.0-32.0); MEAN CORPUSCULAR VOLUME 84.6 fL (80.0-94.0); PLATELET 72 x1000/uL (130-400); RED BLOOD CELL COUNT 3.84 mill/uL (4.7-6.1); RED CELL DISTRIBUTION WIDTH 17.6 % (11.6-14.6)
[2019-11-03 06:50] LABS: CHLORIDE 90 mEq/L (98-107)
[2019-11-03] MEDS: DEXT 5%/0.45% NACL 1000ML 1,000 ML IV SCH (08:45)
[2019-11-03] MEDS: FUROSEMIDE 40MG/4ML VIAL IVP SCH (10:28)
[2019-11-03] MEDS: MIDODRINE HCL 5MG TABLET PO SCH ×3 (10:28→17:45)
[2019-11-03] MEDS: PANTOPRAZOLE SODIUM 40 MG/VIAL IV SCH (10:28)
[2019-11-03] MEDS: THIAMINE HCL 100MG TABLET PO SCH (10:29)
[2019-11-03] MEDS: METHYLPHENIDATE HCL 5MG TABLET PO SCH ×3 (10:29→17:45)
[2019-11-03 14:06] LABS: PLATELET ESTIMATE DECREASED
[2019-11-03] MEDS ORDERED: IOHEXOL-350 100 ML BOTTLE ONE (15:08)
[2019-11-03] MEDS: FUROSEMIDE 100MG/10ML VIAL IVP SCH (17:45)
[2019-11-03] MEDS ORDERED: POTASSIUM CHLORIDE 20MEQ/PACKET PO SCH (20:30)
[2019-11-04] MEDS ORDERED: POTASSIUM CHLORIDE 20MEQ/PACKET PO SCH (00:30)
[2019-11-04] MEDS: MEROPENEM 1,000 MG in SODIUM CHLORIDE 0.9% 100 ML IV SCH ×3 (01:00→20:30)
[2019-11-04] MEDS: IPRATROPIUM/ALBUTEROL 0.5-3(2.5)MG/3ML NEB HHN SCH ×2 (04:00)
[2019-11-04] MEDS: SODIUM CHLORIDE 0.9% INJ 3ML FLUSH IVF SCH ×2 (06:00→14:58)
[2019-11-04] MEDS: BLOOD SUGAR DIAGNOSTIC STRIP TEST SCH ×4 (06:23→20:31)
[2019-11-04] MEDS: DEXT 5%/0.45% NACL 1000ML 1,000 ML IV SCH (08:51)
[2019-11-04] MEDS: THIAMINE HCL 100MG TABLET PO SCH (09:00)
[2019-11-04] MEDS: MIDODRINE HCL 5MG TABLET PO SCH ×3 (09:00→17:49)
[2019-11-04] MEDS: PANTOPRAZOLE SODIUM 40 MG/VIAL IV SCH (09:00)
[2019-11-04] MEDS: FUROSEMIDE 100MG/10ML VIAL IVP SCH ×2 (09:00→20:31)
[2019-11-04] MEDS: METHYLPHENIDATE HCL 5MG TABLET PO SCH (11:00)
[2019-11-04] MEDS ORDERED: HALOPERIDOL LACTATE 5MG/ML VIAL IM NR (13:30)
[2019-11-04 16:10] LABS: HEMATOCRIT 37.1 % (42.0-52.0); HEMOGLOBIN 11.9 g/dL (14.0-18.0); MEAN CORPUSCULAR HEMOGLOBIN 27.5 pg (28.0-32.0); MEAN CORPUSCULAR VOLUME 85.7 fL (80.0-94.0); PLATELET 105 x1000/uL (130-400); RED BLOOD CELL COUNT 4.33 mill/uL (4.7-6.1); RED CELL DISTRIBUTION WIDTH 18.1 % (11.6-14.6)
[2019-11-04 16:17] LABS: INR 1.4
[2019-11-04 16:26] LABS: CHLORIDE 88 mEq/L (98-107)
[2019-11-04 20:00] VITALS: BP 101/58
[2019-11-05] VITALS: BP 110/50
[2019-11-05] MEDS: MEROPENEM 1,000 MG in SODIUM CHLORIDE 0.9% 100 ML IV SCH ×3 (01:00→16:28)
[2019-11-05] MEDS: IPRATROPIUM/ALBUTEROL 0.5-3(2.5)MG/3ML NEB HHN SCH ×6 (01:31→19:51)
[2019-11-05 04:00] VITALS: BP 101/66
[2019-11-05] MEDS: BLOOD SUGAR DIAGNOSTIC STRIP TEST SCH ×4 (06:04→21:00)
[2019-11-05] MEDS: SODIUM CHLORIDE 0.9% INJ 3ML FLUSH IVF SCH ×3 (06:25→22:00)
[2019-11-05 08:00] VITALS: BP 99/58
[2019-11-05] MEDS: DEXT 5%/0.45% NACL 1000ML 1,000 ML IV SCH (08:45)
[2019-11-05] MEDS: FUROSEMIDE 100MG/10ML VIAL IVP SCH ×2 (09:01→16:24)
[2019-11-05] MEDS: PANTOPRAZOLE SODIUM 40 MG/VIAL IV SCH (09:01)
[2019-11-05] MEDS: THIAMINE HCL 100MG TABLET PO SCH (09:02)
[2019-11-05] MEDS: MIDODRINE HCL 5MG TABLET PO SCH ×3 (09:02→16:28)
[2019-11-05] MEDS: METHYLPHENIDATE HCL 5MG TABLET PO SCH ×2 (09:02→16:24)
[2019-11-05 12:25] VITALS: BP 89/57
[2019-11-05 16:34] VITALS: BP 91/67
[2019-11-06] MEDS: MEROPENEM 1,000 MG in SODIUM CHLORIDE 0.9% 100 ML IV SCH ×5 (01:00→17:27)
[2019-11-06 04:00] VITALS: BP 102/67
[2019-11-06] MEDS: SODIUM CHLORIDE 0.9% INJ 3ML FLUSH IVF SCH ×2 (06:00→14:00)
[2019-11-06 08:00] VITALS: BP 119/69
[2019-11-06] MEDS: FUROSEMIDE 100MG/10ML VIAL IVP SCH ×2 (08:38→16:00)
[2019-11-06] MEDS: PANTOPRAZOLE SODIUM 40 MG/VIAL IV SCH (08:38)
[2019-11-06] MEDS: METHYLPHENIDATE HCL 5MG TABLET PO SCH ×2 (08:38→16:01)
[2019-11-06] MEDS: THIAMINE HCL 100MG TABLET PO SCH (08:38)
[2019-11-06] MEDS: MIDODRINE HCL 5MG TABLET PO SCH ×3 (08:38→16:01)
[2019-11-06] MEDS: BLOOD SUGAR DIAGNOSTIC STRIP TEST SCH ×4 (08:39→21:42)
[2019-11-06] MEDS: IPRATROPIUM/ALBUTEROL 0.5-3(2.5)MG/3ML NEB HHN SCH ×3 (09:30→12:55)
[2019-11-06 12:00] VITALS: BP 125/78
[2019-11-06 13:44] LABS: BG BASE EXCESS 10.1 mmol/L (-2.0-2.0); BG CARBOXYHEMOGLOBIN 1.6 % (0.5-1.5); BG DEOXYHEMOGLOBIN 2.6 % (0.0-5.0); BG FRACTION INSPIRED OXYGEN 32; BG HCO3 ACT 34.2 mmol/L (22.0-26.0); BG METHEMOGLOBIN 0.3 % (0.0-1.5); BG OXYGEN SATURATION 97.3 % (92.0-98.5); BG OXYHEMOGLOBIN 95.5 % (94.0-97.0); BG PCO2 43.8 mmHg (35.0-45.0); BG PO2 96.1 mmHg (75.0-100.0); BG SAMPLE SITE RIGHT RADIAL; BG TOTAL HEMOGLOBIN 12.1 g/dL (12.0-18.0); BG VENT MODE NASAL CANNULA
[2019-11-06] MEDS ORDERED: AMIODARONE HCL 900 MG in DEXT 5% WATER 482 ML IV SCH ×2 (14:00→20:00)
[2019-11-06 16:00] VITALS: BP 135/72
[2019-11-06 22:00] VITALS: BP 108/73
[2019-11-06] MEDS: DEXT 5%/0.45% NACL 1000ML 1,000 ML IV SCH (22:20)
[2019-11-07] VITALS (55 sets, daily range): BP systolic 30–134; BP diastolic 18–110
[2019-11-07] MEDS: DEXTROSE 50% WATER 50ML SYRINGE IV PRN ×7 (00:24→20:09)
[2019-11-07 02:15] LABS: BG BASE EXCESS 6.7 mmol/L (-2.0-2.0); BG DEOXYHEMOGLOBIN 0.8 % (0.0-5.0); BG FRACTION INSPIRED OXYGEN 100; BG HCO3 ACT 33.4 mmol/L (22.0-26.0); BG METHEMOGLOBIN 0.2 % (0.0-1.5); BG OXYGEN SATURATION 99.2 % (92.0-98.5); BG PCO2 57.7 mmHg (35.0-45.0); BG PH 7.381 (7.350-7.450); BG PO2 178.8 mmHg (75.0-100.0); BG SAMPLE SITE LEFT RADIAL; BG TOTAL HEMOGLOBIN 12.5 g/dL (12.0-18.0); BG VENT MODE MASK - NRB
[2019-11-07 07:09] LABS: HEMATOCRIT. 35.4 % (42.0-52.0); HEMOGLOBIN. 11.4 g/dL (14.0-18.0); MEAN CORPUSCULAR HEMOGLOBIN 28.6 pg (28.0-32.0); MEAN PLATELET VOLUME 11.2 fl (7.4-10.4); PLATELET 130 x1000/uL (130-400); RED BLOOD CELL COUNT 3.98 mill/uL (4.7-6.1); RED CELL DISTRIBUTION WIDTH 18.7 % (11.6-14.6)
[2019-11-07] MEDS: BLOOD SUGAR DIAGNOSTIC STRIP TEST SCH ×4 (07:30→20:55)
[2019-11-07] MEDS ORDERED: PHENYLEPHRINE 20 MG in DEXT 5% WATER 248 ML IV PRN (08:00)
[2019-11-07] MEDS ORDERED: PHENYLEPHRINE 10 MG in DEXT 5% WATER 249 ML IV PRN (08:15)
[2019-11-07] MEDS ORDERED: SUCCINYLCHOLINE CHLORIDE 200MG/10ML IV ONE (08:30)
[2019-11-07] MEDS ORDERED: ETOMIDATE 2MG/ML 10ML VIAL IV ONE (08:30)
[2019-11-07] MEDS: NOREPINEPHRINE 32 MG in DEXT 5% WATER 468 ML IV PRN (08:54)
[2019-11-07] MEDS: METHYLPHENIDATE HCL 5MG TABLET PO SCH ×2 (09:00→17:00)
[2019-11-07] MEDS: MIDODRINE HCL 5MG TABLET PO SCH ×3 (09:00→17:00)
[2019-11-07] MEDS: FUROSEMIDE 100MG/10ML VIAL IVP SCH ×2 (09:00→17:00)
[2019-11-07] MEDS: THIAMINE HCL 100MG TABLET PO SCH (09:00)
[2019-11-07] MEDS: DEXT 5%/0.45% NACL 1000ML 1,000 ML IV SCH ×2 (09:06→10:25)
[2019-11-07 09:12] LABS: BG CARBOXYHEMOGLOBIN 0.7 % (0.5-1.5); BG DEOXYHEMOGLOBIN 0.6 % (0.0-5.0); BG HCO3 ACT 34.3 mmol/L (22.0-26.0); BG METHEMOGLOBIN 0.9 % (0.0-1.5); BG OXYGEN SATURATION 99.4 % (92.0-98.5); BG OXYHEMOGLOBIN 97.8 % (94.0-97.0); BG PCO2 56.1 mmHg (35.0-45.0); BG PH 7.404 (7.350-7.450); BG PO2 247.2 mmHg (75.0-100.0); BG SAMPLE SITE RIGHT RADIAL; BG TIDAL VOLUME(mL) 550 mL; BG TOTAL HEMOGLOBIN 11.9 g/dL (12.0-18.0); BG VENT MODE VENT - A/C; BG VENT RATE 16 set
[2019-11-07] MEDS: IPRATROPIUM BROMIDE (0.02%) 0.5MG/2.5ML NEB HHN SCH ×4 (09:20→20:40)
[2019-11-07] MEDS ORDERED: LIDOCAINE HCL 1% 20ML VIAL (Pyxis) INJ ONE (09:30)
[2019-11-07] MEDS: PHENYLEPHRINE 80 MG in DEXT 5% WATER 492 ML IV PRN ×3 (09:34→19:53)
[2019-11-07] MEDS: VASOPRESSIN 10 UNIT in SODIUM CHLORIDE 0.9% 99.5 ML IV PRN ×4 (10:00→17:38)
[2019-11-07] MEDS: PANTOPRAZOLE SODIUM 40 MG/VIAL IV SCH (10:36)
[2019-11-07] MEDS: FENTANYL CITRATE/PF 500 MCG in SODIUM CHLORIDE 0.9% 40 ML IV PRN ×2 (10:57→14:05)
[2019-11-07] MEDS ORDERED: LORAZEPAM 2MG/ML CPJ IV ONE (11:15)
[2019-11-07 11:23] LABS: NUCLEATED RED BLOOD CELLS 1 /100 WBC; PLATELET ESTIMATE NORMAL
[2019-11-07 13:39] LABS: INR 2.2; PROTHROMBIN TIME 22.9 sec (9.6-11.0)
[2019-11-07 13:52] LABS: CHLORIDE 87 mEq/L (98-107)
[2019-11-07 13:55] LABS: CHLORIDE 87 mEq/L (98-107)
[2019-11-07] MEDS: SODIUM CHLORIDE 0.9% INJ 3ML FLUSH IVF SCH (22:01)
[2019-11-08] VITALS (96 sets, daily range): BP systolic 95–128; BP diastolic 46–83
[2019-11-08] MEDS: IPRATROPIUM BROMIDE (0.02%) 0.5MG/2.5ML NEB HHN SCH ×4 (02:23→20:50)
[2019-11-08] MEDS: PHENYLEPHRINE 80 MG in DEXT 5% WATER 492 ML IV PRN (03:52)
[2019-11-08] MEDS: NOREPINEPHRINE 32 MG in DEXT 5% WATER 468 ML IV PRN (05:08)
[2019-11-08] MEDS: SODIUM CHLORIDE 0.9% INJ 3ML FLUSH IVF SCH ×3 (05:31→21:13)
[2019-11-08] MEDS: BLOOD SUGAR DIAGNOSTIC STRIP TEST SCH ×4 (05:37→20:16)
[2019-11-08] MEDS: DEXTROSE 50% WATER 50ML SYRINGE IV PRN (05:37)
[2019-11-08 06:42] LABS: BASOPHILS % 0.8 % (0.0-2.0); EOSINOPHILS % 0.1 % (0.0-5.0); HEMOGLOBIN. 11.8 g/dL (14.0-18.0); LYMPHOCYTES % 13.2 % (20.0-50.0); MEAN CORPUSCULAR HEMOGLOBIN 28.2 pg (28.0-32.0); MEAN CORPUSCULAR VOLUME 86.3 fL (80.0-94.0); MEAN PLATELET VOLUME 11.6 fl (7.4-10.4); MONOCYTES % 12.9 % (2.0-8.0); PLATELET 139 x1000/uL (130-400); RED BLOOD CELL COUNT 4.17 mill/uL (4.7-6.1); RED CELL DISTRIBUTION WIDTH 18.6 % (11.6-14.6)
[2019-11-08] MEDS: FUROSEMIDE 100MG/10ML VIAL IVP SCH ×2 (08:22→17:40)
[2019-11-08] MEDS: PANTOPRAZOLE SODIUM 40 MG/VIAL IV SCH (08:22)
[2019-11-08] MEDS: LACTULOSE 20G/30ML UDC PO SCH ×3 (08:22→21:18)
[2019-11-08] MEDS: METHYLPHENIDATE HCL 5MG TABLET PO SCH ×2 (08:23→17:52)
[2019-11-08] MEDS: MIDODRINE HCL 5MG TABLET PO SCH ×3 (08:23→17:40)
[2019-11-08] MEDS: THIAMINE HCL 100MG TABLET PO SCH (08:24)
[2019-11-08 08:45] LABS: BG BASE EXCESS 8.1 mmol/L (-2.0-2.0); BG CARBOXYHEMOGLOBIN 0.9 % (0.5-1.5); BG DEOXYHEMOGLOBIN 2.1 % (0.0-5.0); BG FRACTION INSPIRED OXYGEN 50; BG HCO3 ACT 32.2 mmol/L (22.0-26.0); BG METHEMOGLOBIN 0.3 % (0.0-1.5); BG OXYGEN SATURATION 97.9 % (92.0-98.5); BG OXYHEMOGLOBIN 96.7 % (94.0-97.0); BG PCO2 42.6 mmHg (35.0-45.0); BG PH 7.496 (7.350-7.450); BG PO2 109.2 mmHg (75.0-100.0); BG SAMPLE SITE RIGHT RADIAL; BG TIDAL VOLUME(mL) 550 mL; BG TOTAL HEMOGLOBIN 12.7 g/dL (12.0-18.0); BG VENT MODE VENT - A/C; BG VENT RATE 16 set
[2019-11-08] MEDS: FENTANYL CITRATE/PF 500 MCG in SODIUM CHLORIDE 0.9% 40 ML IV PRN ×2 (11:11→22:19)
[2019-11-08] MEDS: CEFTAZIDIME PENTAHYDRATE 1 G in DEXTROSE 5% WATER 50 ML IV SCH (17:26)
[2019-11-08] MEDS ORDERED: VANCOMYCIN 1,750 MG in DEXT 5% WATER 500 ML IV NR (17:30)
[2019-11-09] VITALS (96 sets, daily range): BP systolic 70–134; BP diastolic 43–80
[2019-11-09] MEDS: CEFTAZIDIME PENTAHYDRATE 1 G in DEXTROSE 5% WATER 50 ML IV SCH ×3 (00:43→17:40)
[2019-11-09] MEDS: IPRATROPIUM BROMIDE (0.02%) 0.5MG/2.5ML NEB HHN SCH ×4 (04:34→20:08)
[2019-11-09] MEDS: VANCOMYCIN 1250MG in DEXTROSE 5% WATER 250ML IV SCH ×2 (04:45→17:15)
[2019-11-09] MEDS: SODIUM CHLORIDE 0.9% INJ 3ML FLUSH IVF SCH ×3 (05:31→21:28)
[2019-11-09] MEDS: LACTULOSE 20G/30ML UDC PO SCH ×3 (05:47→21:29)
[2019-11-09] MEDS: BLOOD SUGAR DIAGNOSTIC STRIP TEST SCH ×4 (05:47→21:00)
[2019-11-09] MEDS: DEXT 5%/0.45% NACL 1000ML 1,000 ML IV SCH (09:09)
[2019-11-09] MEDS: FENTANYL CITRATE/PF 500 MCG in SODIUM CHLORIDE 0.9% 40 ML IV PRN ×2 (09:10→14:30)
[2019-11-09 09:28] LABS: BG BASE EXCESS 11.8 mmol/L (-2.0-2.0); BG CARBOXYHEMOGLOBIN 0.9 % (0.5-1.5); BG FRACTION INSPIRED OXYGEN 40; BG HCO3 ACT 37.2 mmol/L (22.0-26.0); BG METHEMOGLOBIN 0.3 % (0.0-1.5); BG OXYHEMOGLOBIN 95.8 % (94.0-97.0); BG PCO2 50.6 mmHg (35.0-45.0); BG PH 7.484 (7.350-7.450); BG PO2 92.9 mmHg (75.0-100.0); BG SAMPLE SITE RIGHT RADIAL; BG TIDAL VOLUME(mL) 550 mL; BG VENT MODE VENT - A/C; BG VENT RATE 16 set
[2019-11-09] MEDS: FUROSEMIDE 100MG/10ML VIAL IVP SCH ×2 (09:40→17:40)
[2019-11-09] MEDS: PANTOPRAZOLE SODIUM 40 MG/VIAL IV SCH (09:40)
[2019-11-09] MEDS: DIPHENHYDRAMINE 50MG/ML VIAL IV PRN ×2 (09:40→17:40)
[2019-11-09] MEDS: THIAMINE HCL 100MG TABLET PO SCH (09:40)
[2019-11-09] MEDS: MIDODRINE HCL 5MG TABLET PO SCH ×3 (09:41→17:56)
[2019-11-09] MEDS: DOCUSATE SODIUM 100MG CAPSULE PO PRN (09:41)
[2019-11-09] MEDS: METHYLPHENIDATE HCL 5MG TABLET PO SCH ×2 (09:41→18:35)
[2019-11-09 10:01] LABS: HEMATOCRIT. 39.9 % (42.0-52.0); HEMOGLOBIN. 13.1 g/dL (14.0-18.0); MEAN CORPUSCULAR HEMOGLOBIN 28.3 pg (28.0-32.0); MEAN CORPUSCULAR VOLUME 86.4 fL (80.0-94.0); MEAN PLATELET VOLUME 11.6 fl (7.4-10.4); PLATELET 146 x1000/uL (130-400); RED BLOOD CELL COUNT 4.63 mill/uL (4.7-6.1); RED CELL DISTRIBUTION WIDTH 19.4 % (11.6-14.6)
[2019-11-09] MEDS: NOREPINEPHRINE 32 MG in DEXT 5% WATER 468 ML IV PRN (12:45)
[2019-11-09 14:07] LABS: NUCLEATED RED BLOOD CELLS 1 /100 WBC; PLATELET ESTIMATE NORMAL
[2019-11-09 19:07] LABS: CHLORIDE 87 mEq/L (98-107)
[2019-11-09 19:12] LABS: PHOSPHORUS 3.7 mg/dL (2.5-4.9)
[2019-11-10] VITALS (96 sets, daily range): BP systolic 81–126; BP diastolic 36–98
[2019-11-10] MEDS: FENTANYL CITRATE/PF 500 MCG in SODIUM CHLORIDE 0.9% 40 ML IV PRN ×3 (00:04→20:18)
[2019-11-10] MEDS: CEFTAZIDIME PENTAHYDRATE 1 G in DEXTROSE 5% WATER 50 ML IV SCH ×3 (00:09→17:39)
[2019-11-10] MEDS: IPRATROPIUM BROMIDE (0.02%) 0.5MG/2.5ML NEB HHN SCH ×4 (02:12→20:19)
[2019-11-10] MEDS: MIDAZOLAM HCL 100 MG in DEXT 5% WATER 80 ML IV PRN (02:44)
[2019-11-10] MEDS: VANCOMYCIN 1250MG in DEXTROSE 5% WATER 250ML IV SCH (04:21)
[2019-11-10] MEDS: SODIUM CHLORIDE 0.9% INJ 3ML FLUSH IVF SCH ×3 (05:22→21:57)
[2019-11-10] MEDS: LACTULOSE 20G/30ML UDC PO SCH ×3 (05:36→22:05)
[2019-11-10 05:42] LABS: BASOPHILS % 0.6 % (0.0-2.0); HEMATOCRIT. 40.7 % (42.0-52.0); HEMOGLOBIN. 13.4 g/dL (14.0-18.0); LYMPHOCYTES % 10.3 % (20.0-50.0); MEAN CORPUSCULAR HEMOGLOBIN 28.9 pg (28.0-32.0); MEAN CORPUSCULAR VOLUME 87.8 fL (80.0-94.0); MONOCYTES % 12.3 % (2.0-8.0); NEUTROPHILS % 76.8 % (40.0-76.0); PLATELET 144 x1000/uL (130-400); RED BLOOD CELL COUNT 4.63 mill/uL (4.7-6.1); RED CELL DISTRIBUTION WIDTH 20.5 % (11.6-14.6)
[2019-11-10 06:09] LABS: CHLORIDE 90 mEq/L (98-107)
[2019-11-10] MEDS: BLOOD SUGAR DIAGNOSTIC STRIP TEST SCH ×4 (06:11→21:11)
[2019-11-10] MEDS: DEXTROSE 50% WATER 50ML SYRINGE IV PRN ×3 (06:12→16:41)
[2019-11-10 09:42] LABS: BG BASE EXCESS 10.2 mmol/L (-2.0-2.0); BG CARBOXYHEMOGLOBIN 1.8 % (0.5-1.5); BG FRACTION INSPIRED OXYGEN 40; BG HCO3 ACT 37.1 mmol/L (22.0-26.0); BG METHEMOGLOBIN 0.1 % (0.0-1.5); BG OXYGEN SATURATION 96.9 % (92.0-98.5); BG OXYHEMOGLOBIN 95.1 % (94.0-97.0); BG PCO2 59.1 mmHg (35.0-45.0); BG PH 7.416 (7.350-7.450); BG PO2 93.6 mmHg (75.0-100.0); BG SAMPLE SITE RIGHT RADIAL; BG TIDAL VOLUME(mL) 550 mL; BG TOTAL HEMOGLOBIN 14.2 g/dL (12.0-18.0); BG VENT MODE VENT - A/C; BG VENT RATE 16 set
[2019-11-10] MEDS: DEXT 5%/0.45% NACL 1000ML 1,000 ML IV SCH (09:59)
[2019-11-10] MEDS: PANTOPRAZOLE SODIUM 40 MG/VIAL IV SCH (09:59)
[2019-11-10] MEDS: THIAMINE HCL 100MG TABLET PO SCH (10:00)
[2019-11-10] MEDS: MIDODRINE HCL 5MG TABLET PO SCH ×3 (10:00→17:39)
[2019-11-10] MEDS: METHYLPHENIDATE HCL 5MG TABLET PO SCH ×2 (10:00→17:39)
[2019-11-10] MEDS: FUROSEMIDE 100MG/10ML VIAL IVP SCH ×2 (10:00→17:39)
[2019-11-10] MEDS ORDERED: NON FORMULARY PATIENT HOME MED XX SCH (10:45)
[2019-11-10] MEDS: NOREPINEPHRINE 32 MG in DEXT 5% WATER 468 ML IV PRN (13:28)
[2019-11-10 14:13] LABS: BG BASE EXCESS -0.8 mmol/L (-2.0-2.0); BG CARBOXYHEMOGLOBIN 0.8 % (0.5-1.5); BG DEOXYHEMOGLOBIN 0.8 % (0.0-5.0); BG FRACTION INSPIRED OXYGEN 40; BG HCO3 ACT 21.5 mmol/L (22.0-26.0); BG METHEMOGLOBIN 0.4 % (0.0-1.5); BG OXYGEN SATURATION 99.2 % (92.0-98.5); BG PH 7.518 (7.350-7.450); BG SAMPLE SITE RIGHT RADIAL; BG TIDAL VOLUME(mL) 550 mL; BG TOTAL HEMOGLOBIN 8.8 g/dL (12.0-18.0); BG VENT MODE VENT - A/C; BG VENT RATE 16 set
[2019-11-10] MEDS: SODIUM CHLORIDE IV SCH (16:34)
[2019-11-10] MEDS: WATER IV SCH (16:34)
[2019-11-10] MEDS: DEXTROSE 20% IV SCH (16:34)
[2019-11-11] VITALS (99 sets, daily range): BP systolic 85–119; BP diastolic 53–83
[2019-11-11] MEDS: CEFTAZIDIME PENTAHYDRATE 1 G in DEXTROSE 5% WATER 50 ML IV SCH ×3 (00:36→16:39)
[2019-11-11] MEDS: IPRATROPIUM BROMIDE (0.02%) 0.5MG/2.5ML NEB HHN SCH ×4 (01:40→21:20)
[2019-11-11] MEDS: SODIUM CHLORIDE IV SCH ×2 (04:23→21:04)
[2019-11-11] MEDS: WATER IV SCH ×2 (04:23→21:04)
[2019-11-11] MEDS: DEXTROSE 20% IV SCH ×2 (04:23→21:04)
[2019-11-11] MEDS: MIDAZOLAM HCL 100 MG in DEXT 5% WATER 80 ML IV PRN (04:28)
[2019-11-11] MEDS: SODIUM CHLORIDE 0.9% INJ 3ML FLUSH IVF SCH ×3 (05:06→21:20)
[2019-11-11] MEDS: LACTULOSE 20G/30ML UDC PO SCH ×3 (05:45→21:04)
[2019-11-11] MEDS: BLOOD SUGAR DIAGNOSTIC STRIP TEST SCH ×4 (05:45→20:56)
[2019-11-11 05:52] LABS: HEMATOCRIT. 43.5 % (42.0-52.0); HEMOGLOBIN. 14.5 g/dL (14.0-18.0); MEAN CORPUSCULAR HEMOGLOBIN 29.2 pg (28.0-32.0); MEAN CORPUSCULAR VOLUME 87.7 fL (80.0-94.0); RED BLOOD CELL COUNT 4.95 mill/uL (4.7-6.1); RED CELL DISTRIBUTION WIDTH 21.8 % (11.6-14.6)
[2019-11-11] MEDS ORDERED: VANCOMYCIN 1500MG in DEXTROSE 5% WATER 250ML IV SCH (06:00)
[2019-11-11 06:03] LABS: CHLORIDE 89 mEq/L (98-107)
[2019-11-11 07:38] LABS: BG BASE EXCESS 8.5 mmol/L (-2.0-2.0); BG CARBOXYHEMOGLOBIN 1.4 % (0.5-1.5); BG DEOXYHEMOGLOBIN 2.5 % (0.0-5.0); BG FRACTION INSPIRED OXYGEN 40; BG HCO3 ACT 31.3 mmol/L (22.0-26.0); BG METHEMOGLOBIN 0.1 % (0.0-1.5); BG OXYGEN SATURATION 97.5 % (92.0-98.5); BG PH 7.545 (7.350-7.450); BG PO2 93.2 mmHg (75.0-100.0); BG SAMPLE SITE RIGHT RADIAL; BG TIDAL VOLUME(mL) 550 mL; BG TOTAL HEMOGLOBIN 14.4 g/dL (12.0-18.0); BG VENT MODE VENT - A/C; BG VENT RATE 16 set
[2019-11-11] MEDS: FUROSEMIDE 100MG/10ML VIAL IVP SCH ×2 (08:08→16:38)
[2019-11-11] MEDS: PANTOPRAZOLE SODIUM 40 MG/VIAL IV SCH (08:08)
[2019-11-11] MEDS: METHYLPHENIDATE HCL 5MG TABLET PO SCH ×2 (08:09→16:38)
[2019-11-11] MEDS: MIDODRINE HCL 5MG TABLET PO SCH ×3 (08:09→16:38)
[2019-11-11] MEDS: THIAMINE HCL 100MG TABLET PO SCH (08:09)
[2019-11-11] MEDS: FENTANYL CITRATE/PF 500 MCG in SODIUM CHLORIDE 0.9% 40 ML IV PRN (08:48)
[2019-11-11] MEDS: NOREPINEPHRINE 32 MG in DEXT 5% WATER 468 ML IV PRN (09:49)
[2019-11-11] MEDS ORDERED: DIATR MEGLU/DIATRIZOATE SOLN 120ML ONE (14:57)
[2019-11-11] MEDS: SULFAMETHOXAZOLE/TRIMETHOPRIM 800/160MG TABLET PO SCH ×2 (16:39→21:03)
[2019-11-11 16:59] LABS: MEAN PLATELET VOLUME 11.7 fl (7.4-10.4); PLATELET 150 x1000/uL (130-400)
[2019-11-11 17:01] LABS: PLATELET ESTIMATE NORMAL
[2019-11-12] VITALS (95 sets, daily range): BP systolic 89–117; BP diastolic 54–76
[2019-11-12] MEDS: FENTANYL CITRATE/PF 500 MCG in SODIUM CHLORIDE 0.9% 40 ML IV PRN (00:01)
[2019-11-12] MEDS: CEFTAZIDIME PENTAHYDRATE 1 G in DEXTROSE 5% WATER 50 ML IV SCH ×3 (01:51→17:52)
[2019-11-12] MEDS: SODIUM CHLORIDE 0.9% INJ 3ML FLUSH IVF SCH ×3 (05:07→21:02)
[2019-11-12] MEDS: BLOOD SUGAR DIAGNOSTIC STRIP TEST SCH ×4 (05:31→21:03)
[2019-11-12] MEDS: LACTULOSE 20G/30ML UDC PO SCH ×3 (06:55→21:12)
[2019-11-12] MEDS: MIDAZOLAM HCL 100 MG in DEXT 5% WATER 80 ML IV PRN (07:30)
[2019-11-12] MEDS: IPRATROPIUM BROMIDE (0.02%) 0.5MG/2.5ML NEB HHN SCH ×3 (08:55→20:38)
[2019-11-12] MEDS: FUROSEMIDE 100MG/10ML VIAL IVP SCH ×2 (09:03→17:50)
[2019-11-12] MEDS: MIDODRINE HCL 5MG TABLET PO SCH ×3 (09:03→17:51)
[2019-11-12] MEDS: SULFAMETHOXAZOLE/TRIMETHOPRIM 800/160MG TABLET PO SCH ×2 (09:03→21:12)
[2019-11-12] MEDS: PANTOPRAZOLE SODIUM 40 MG/VIAL IV SCH (09:03)
[2019-11-12] MEDS: METHYLPHENIDATE HCL 5MG TABLET PO SCH ×2 (09:04→17:50)
[2019-11-12] MEDS: THIAMINE HCL 100MG TABLET PO SCH (09:04)
[2019-11-12] MEDS: DEXTROSE 20% IV SCH (10:57)
[2019-11-12] MEDS: SODIUM CHLORIDE IV SCH (10:57)
[2019-11-12] MEDS: WATER IV SCH (10:57)
[2019-11-12] MEDS: METRONIDAZOLE 500 MG PREMIX 100 ML IV SCH (21:12)
[2019-11-13] VITALS (93 sets, daily range): BP systolic 90–147; BP diastolic 34–114
[2019-11-13] MEDS: SODIUM CHLORIDE IV SCH ×4 (00:57→21:02)
[2019-11-13] MEDS: DEXTROSE 20% IV SCH ×4 (00:57→21:02)
[2019-11-13] MEDS: CEFTAZIDIME PENTAHYDRATE 1 G in DEXTROSE 5% WATER 50 ML IV SCH ×3 (00:57→17:48)
[2019-11-13] MEDS: WATER IV SCH ×4 (00:57→21:02)
[2019-11-13] MEDS: IPRATROPIUM BROMIDE (0.02%) 0.5MG/2.5ML NEB HHN SCH ×4 (02:11→20:45)
[2019-11-13] MEDS: SODIUM CHLORIDE 0.9% INJ 3ML FLUSH IVF SCH ×3 (05:00→21:45)
[2019-11-13] MEDS: NOREPINEPHRINE 32 MG in DEXT 5% WATER 468 ML IV PRN (05:00)
[2019-11-13] MEDS: LACTULOSE 20G/30ML UDC PO SCH (05:53)
[2019-11-13] MEDS: BLOOD SUGAR DIAGNOSTIC STRIP TEST SCH ×4 (05:53→21:02)
[2019-11-13 05:56] LABS: INR 1.7; PROTHROMBIN TIME 17.8 sec (9.6-11.0)
[2019-11-13 07:51] LABS: BG BASE EXCESS 7.2 mmol/L (-2.0-2.0); BG CARBOXYHEMOGLOBIN 1.8 % (0.5-1.5); BG FRACTION INSPIRED OXYGEN 40; BG HCO3 ACT 30.5 mmol/L (22.0-26.0); BG METHEMOGLOBIN 0.3 % (0.0-1.5); BG OXYHEMOGLOBIN 96.9 % (94.0-97.0); BG PCO2 38.4 mmHg (35.0-45.0); BG PH 7.518 (7.350-7.450); BG SAMPLE SITE RIGHT RADIAL; BG TIDAL VOLUME(mL) 550 mL; BG TOTAL HEMOGLOBIN 13.6 g/dL (12.0-18.0); BG VENT MODE VENT - A/C; BG VENT RATE 14 set
[2019-11-13] MEDS ORDERED: MIDAZOLAM HCL 2 MG/2 ML VIAL IV NR (09:10)
[2019-11-13] MEDS: PANTOPRAZOLE SODIUM 40 MG/VIAL IV SCH (09:57)
[2019-11-13] MEDS: SULFAMETHOXAZOLE/TRIMETHOPRIM 800/160MG TABLET PO SCH ×2 (09:57→21:02)
[2019-11-13] MEDS: METHYLPHENIDATE HCL 5MG TABLET PO SCH ×2 (09:57→17:48)
[2019-11-13] MEDS: THIAMINE HCL 100MG TABLET PO SCH (09:57)
[2019-11-13] MEDS: FUROSEMIDE 100MG/10ML VIAL IVP SCH ×2 (09:57→17:49)
[2019-11-13] MEDS: MIDODRINE HCL 5MG TABLET PO SCH ×3 (09:58→17:48)
[2019-11-13] MEDS ORDERED: LACTULOSE 20G/30ML UDC PO PRN (10:45)
[2019-11-13] MEDS: METRONIDAZOLE 500 MG PREMIX 100 ML IV SCH ×2 (11:29→21:02)
[2019-11-13] MEDS ORDERED: ALBUMIN HUMAN 25GM/100ML (25%) IV SCH (12:00)
[2019-11-14] VITALS (90 sets, daily range): BP systolic 63–137; BP diastolic 15–88
[2019-11-14] MEDS: CEFTAZIDIME PENTAHYDRATE 1 G in DEXTROSE 5% WATER 50 ML IV SCH ×3 (01:39→18:50)
[2019-11-14] MEDS: IPRATROPIUM BROMIDE (0.02%) 0.5MG/2.5ML NEB HHN SCH ×4 (02:19→20:12)
[2019-11-14 05:36] LABS: CHLORIDE 94 mEq/L (98-107)
[2019-11-14] MEDS: SODIUM CHLORIDE 0.9% INJ 3ML FLUSH IVF SCH ×3 (05:45→22:38)
[2019-11-14] MEDS: BLOOD SUGAR DIAGNOSTIC STRIP TEST SCH ×4 (05:51→20:16)
[2019-11-14 08:26] LABS: BG BASE EXCESS 12.8 mmol/L (-2.0-2.0); BG CARBOXYHEMOGLOBIN 0.8 % (0.5-1.5); BG DEOXYHEMOGLOBIN 1.6 % (0.0-5.0); BG FRACTION INSPIRED OXYGEN 40; BG HCO3 ACT 36.2 mmol/L (22.0-26.0); BG METHEMOGLOBIN 0.1 % (0.0-1.5); BG OXYGEN SATURATION 98.4 % (92.0-98.5); BG OXYHEMOGLOBIN 97.5 % (94.0-97.0); BG PCO2 41.7 mmHg (35.0-45.0); BG PH 7.557 (7.350-7.450); BG PO2 122.5 mmHg (75.0-100.0); BG SAMPLE SITE RIGHT RADIAL; BG TIDAL VOLUME(mL) 550 mL; BG TOTAL HEMOGLOBIN 11.4 g/dL (12.0-18.0); BG VENT MODE VENT - A/C; BG VENT RATE 12 set
[2019-11-14] MEDS: METRONIDAZOLE 500 MG PREMIX 100 ML IV SCH ×2 (09:00→20:23)
[2019-11-14] MEDS: THIAMINE HCL 100MG TABLET PO SCH (09:08)
[2019-11-14] MEDS: METHYLPHENIDATE HCL 5MG TABLET PO SCH ×2 (09:08→18:50)
[2019-11-14] MEDS: SULFAMETHOXAZOLE/TRIMETHOPRIM 800/160MG TABLET PO SCH ×2 (09:08→20:23)
[2019-11-14] MEDS: ACETAMINOPHEN 325MG TABLET PO PRN (09:08)
[2019-11-14] MEDS: MIDODRINE HCL 5MG TABLET PO SCH ×3 (09:09→18:51)
[2019-11-14] MEDS: PANTOPRAZOLE SODIUM 40 MG/VIAL IV SCH (09:09)
[2019-11-14] MEDS: FUROSEMIDE 100MG/10ML VIAL IVP SCH ×2 (09:09→18:51)
[2019-11-14] MEDS ORDERED: POTASSIUM CHLORIDE INJ 40 MEQ in DEXT 5% WATER 250 ML IV NR (09:30)
[2019-11-14] MEDS: DEXTROSE 20% IV SCH ×2 (10:13→22:39)
[2019-11-14] MEDS: WATER IV SCH ×2 (10:13→22:39)
[2019-11-14] MEDS: SODIUM CHLORIDE IV SCH ×2 (10:13→22:39)
[2019-11-14 11:05] LABS: BASOPHILS % 0.3 % (0.0-2.0); HEMATOCRIT. 34.1 % (42.0-52.0); HEMOGLOBIN. 11.1 g/dL (14.0-18.0); LYMPHOCYTES % 9.5 % (20.0-50.0); MEAN CORPUSCULAR HEMOGLOBIN 28.8 pg (28.0-32.0); MEAN PLATELET VOLUME 11.5 fl (7.4-10.4); MONOCYTES % 8.2 % (2.0-8.0); PLATELET 68 x1000/uL (130-400); RED BLOOD CELL COUNT 3.87 mill/uL (4.7-6.1); RED CELL DISTRIBUTION WIDTH 22.5 % (11.6-14.6)
[2019-11-14] MEDS ORDERED: MORPHINE SULFATE 2 MG/ML CPJ (NOT FOR IM USE) IV PRN (11:45)
[2019-11-14] MEDS: DEXTROSE 50% WATER 50ML SYRINGE IV PRN (19:05)
[2019-11-15] VITALS (97 sets, daily range): BP systolic 87–197; BP diastolic 51–179
[2019-11-15] MEDS: CEFTAZIDIME PENTAHYDRATE 1 G in DEXTROSE 5% WATER 50 ML IV SCH ×3 (00:55→16:46)
[2019-11-15] MEDS: IPRATROPIUM BROMIDE (0.02%) 0.5MG/2.5ML NEB HHN SCH ×4 (02:07→20:47)
[2019-11-15] MEDS: SODIUM CHLORIDE 0.9% INJ 3ML FLUSH IVF SCH ×3 (05:21→21:30)
[2019-11-15] MEDS: BLOOD SUGAR DIAGNOSTIC STRIP TEST SCH ×4 (05:31→20:42)
[2019-11-15 05:50] LABS: BASOPHILS % 0.5 % (0.0-2.0); EOSINOPHILS % 0.1 % (0.0-5.0); HEMATOCRIT. 35.4 % (42.0-52.0); HEMOGLOBIN. 11.5 g/dL (14.0-18.0); MEAN CORPUSCULAR VOLUME 89.1 fL (80.0-94.0); MONOCYTES % 9.6 % (2.0-8.0); NEUTROPHILS % 80.8 % (40.0-76.0); RED BLOOD CELL COUNT 3.97 mill/uL (4.7-6.1); RED CELL DISTRIBUTION WIDTH 21.7 % (11.6-14.6)
[2019-11-15 06:06] LABS: CHLORIDE 96 mEq/L (98-107)
[2019-11-15 08:17] LABS: BG BASE EXCESS 6.3 mmol/L (-2.0-2.0); BG CARBOXYHEMOGLOBIN 1.1 % (0.5-1.5); BG CPAP (cmH2O) 0 cm(H2O); BG DEOXYHEMOGLOBIN 11.7 % (0.0-5.0); BG HCO3 ACT 31.4 mmol/L (22.0-26.0); BG METHEMOGLOBIN 0.3 % (0.0-1.5); BG OXYGEN SATURATION 88.1 % (92.0-98.5); BG OXYHEMOGLOBIN 86.9 % (94.0-97.0); BG PCO2 47.4 mmHg (35.0-45.0); BG PH 7.439 (7.350-7.450); BG PO2 54.5 mmHg (75.0-100.0); BG SAMPLE SITE RIGHT RADIAL; BG TOTAL HEMOGLOBIN 12.3 g/dL (12.0-18.0); BG VENT MODE VENT - CPAP
[2019-11-15] MEDS: METRONIDAZOLE 500 MG PREMIX 100 ML IV SCH ×2 (09:52→22:50)
[2019-11-15] MEDS: WATER IV SCH ×2 (09:52→22:50)
[2019-11-15] MEDS: SODIUM CHLORIDE IV SCH ×2 (09:52→22:50)
[2019-11-15] MEDS: [UNRECOGNIZED DRUG - OTHER] IV SCH ×2 (09:52→22:50)
[2019-11-15] MEDS: DEXTROSE IV SCH ×2 (09:52→22:50)
[2019-11-15] MEDS: FUROSEMIDE 100MG/10ML VIAL IVP SCH ×2 (10:06→16:46)
[2019-11-15] MEDS: SULFAMETHOXAZOLE/TRIMETHOPRIM 800/160MG TABLET PO SCH ×2 (10:06→21:33)
[2019-11-15] MEDS: PANTOPRAZOLE SODIUM 40 MG/VIAL IV SCH (10:06)
[2019-11-15] MEDS: THIAMINE HCL 100MG TABLET PO SCH (10:07)
[2019-11-15] MEDS: DOCUSATE SODIUM 100MG CAPSULE PO PRN ×2 (10:07→16:46)
[2019-11-15] MEDS: MIDODRINE HCL 5MG TABLET PO SCH ×3 (10:07→16:47)
[2019-11-15] MEDS: METHYLPHENIDATE HCL 5MG TABLET PO SCH ×2 (10:31→16:52)
[2019-11-15] MEDS: DEXTROSE 50% WATER 50ML SYRINGE IV PRN (11:47)
[2019-11-15] MEDS ORDERED: DEXTROSE 50% WATER 50ML SYRINGE IV ONE (11:50)
[2019-11-15] MEDS: METOCLOPRAMIDE HCL 10MG/2ML VIAL IV SCH ×3 (12:24→23:20)
[2019-11-15 13:36] LABS: PLATELET 72 x1000/uL (130-400)
[2019-11-15] MEDS: DIPHENHYDRAMINE 50MG/ML VIAL IV PRN (16:46)
[2019-11-16] VITALS (95 sets, daily range): BP systolic 90–112; BP diastolic 60–77
[2019-11-16] MEDS: IPRATROPIUM BROMIDE (0.02%) 0.5MG/2.5ML NEB HHN SCH ×4 (02:14→21:35)
[2019-11-16] MEDS: NOREPINEPHRINE 32 MG in DEXT 5% WATER 468 ML IV PRN (04:30)
[2019-11-16] MEDS: SODIUM CHLORIDE 0.9% INJ 3ML FLUSH IVF SCH ×3 (05:06→21:03)
[2019-11-16] MEDS: BLOOD SUGAR DIAGNOSTIC STRIP TEST SCH ×4 (05:34→20:55)
[2019-11-16] MEDS: METOCLOPRAMIDE HCL 10MG/2ML VIAL IV SCH ×4 (05:38→23:15)
[2019-11-16 05:59] LABS: BASOPHILS % 0.3 % (0.0-2.0); HEMATOCRIT. 29.3 % (42.0-52.0); HEMOGLOBIN. 9.6 g/dL (14.0-18.0); LYMPHOCYTES % 7.2 % (20.0-50.0); MEAN CORPUSCULAR HEMOGLOBIN 29.1 pg (28.0-32.0); MEAN CORPUSCULAR VOLUME 88.9 fL (80.0-94.0); NEUTROPHILS % 80.5 % (40.0-76.0); PLATELET 52 x1000/uL (130-400); RED CELL DISTRIBUTION WIDTH 21.9 % (11.6-14.6)
[2019-11-16 06:14] LABS: PHOSPHORUS 4.3 mg/dL (2.5-4.9)
[2019-11-16 08:11] LABS: BG BASE EXCESS 8.3 mmol/L (-2.0-2.0); BG BILEVEL POS AIRWAY PRESSURE 15/5; BG CARBOXYHEMOGLOBIN 0.4 % (0.5-1.5); BG DEOXYHEMOGLOBIN 2.9 % (0.0-5.0); BG HCO3 ACT 32.4 mmol/L (22.0-26.0); BG METHEMOGLOBIN 0.3 % (0.0-1.5); BG OXYGEN SATURATION 97.1 % (92.0-98.5); BG OXYHEMOGLOBIN 96.4 % (94.0-97.0); BG PCO2 43.3 mmHg (35.0-45.0); BG PH 7.492 (7.350-7.450); BG PO2 97.7 mmHg (75.0-100.0); BG SAMPLE SITE LEFT RADIAL; BG TOTAL HEMOGLOBIN 10.1 g/dL (12.0-18.0); BG VENT MODE MASK - BIPAP; BG VENT RATE 16 set
[2019-11-16] MEDS: FUROSEMIDE 100MG/10ML VIAL IVP SCH ×2 (09:23→17:50)
[2019-11-16] MEDS: ASCORBIC ACID 500 MG TABLET PO SCH (09:23)
[2019-11-16] MEDS: SULFAMETHOXAZOLE/TRIMETHOPRIM 800/160MG TABLET PO SCH ×2 (09:23→20:56)
[2019-11-16] MEDS: DOCUSATE SODIUM 100MG CAPSULE PO PRN ×2 (09:23→17:51)
[2019-11-16] MEDS: PANTOPRAZOLE SODIUM 40 MG/VIAL IV SCH (09:24)
[2019-11-16] MEDS: THIAMINE HCL 100MG TABLET PO SCH (09:24)
[2019-11-16] MEDS: ZINC SULFATE 220 MG ( 50 ) CAPSULE PO SCH (09:24)
[2019-11-16] MEDS: MIDODRINE HCL 5MG TABLET PO SCH ×3 (09:24→17:51)
[2019-11-16] MEDS: METRONIDAZOLE 500 MG PREMIX 100 ML IV SCH ×2 (09:27→20:57)
[2019-11-16] MEDS: METHYLPHENIDATE HCL 5MG TABLET PO SCH ×2 (09:27→17:51)
[2019-11-16] MEDS: CEFTAZIDIME PENTAHYDRATE 1 G in DEXTROSE 5% WATER 50 ML IV SCH ×2 (11:39→19:04)
[2019-11-16] MEDS: DEXTROSE IV SCH (11:39)
[2019-11-16] MEDS: WATER IV SCH (11:39)
[2019-11-16] MEDS: SODIUM CHLORIDE IV SCH (11:39)
[2019-11-16] MEDS: [UNRECOGNIZED DRUG - OTHER] IV SCH (11:39)
[2019-11-17] VITALS (96 sets, daily range): BP systolic 92–111; BP diastolic 59–75
[2019-11-17] MEDS: IPRATROPIUM BROMIDE (0.02%) 0.5MG/2.5ML NEB HHN SCH ×4 (01:12→23:40)
[2019-11-17] MEDS: CEFTAZIDIME PENTAHYDRATE 1 G in DEXTROSE 5% WATER 50 ML IV SCH ×2 (01:31→11:22)
[2019-11-17] MEDS: SODIUM CHLORIDE IV SCH ×2 (04:11→18:40)
[2019-11-17] MEDS: [UNRECOGNIZED DRUG - OTHER] IV SCH ×2 (04:11→18:40)
[2019-11-17] MEDS: WATER IV SCH ×2 (04:11→18:40)
[2019-11-17] MEDS: DEXTROSE IV SCH ×2 (04:11→18:40)
[2019-11-17] MEDS: SODIUM CHLORIDE 0.9% INJ 3ML FLUSH IVF SCH ×3 (05:00→22:00)
[2019-11-17 05:28] LABS: HEMOGLOBIN. 9.9 g/dL (14.0-18.0); MEAN CORPUSCULAR HEMOGLOBIN 28.8 pg (28.0-32.0); MEAN CORPUSCULAR VOLUME 87.5 fL (80.0-94.0); MEAN PLATELET VOLUME 12.1 fl (7.4-10.4); PLATELET 59 x1000/uL (130-400); RED BLOOD CELL COUNT 3.43 mill/uL (4.7-6.1); RED CELL DISTRIBUTION WIDTH 22.6 % (11.6-14.6)
[2019-11-17] MEDS: BLOOD SUGAR DIAGNOSTIC STRIP TEST SCH ×4 (05:57→20:22)
[2019-11-17] MEDS: FUROSEMIDE 100MG/10ML VIAL IVP SCH (06:16)
[2019-11-17] MEDS: METOCLOPRAMIDE HCL 10MG/2ML VIAL IV SCH ×3 (06:16→18:41)
[2019-11-17 07:55] LABS: BG BILEVEL POS AIRWAY PRESSURE 15/5; BG CARBOXYHEMOGLOBIN 0.3 % (0.5-1.5); BG DEOXYHEMOGLOBIN 2.4 % (0.0-5.0); BG FRACTION INSPIRED OXYGEN 40; BG HCO3 ACT 32.8 mmol/L (22.0-26.0); BG METHEMOGLOBIN 0.3 % (0.0-1.5); BG OXYGEN SATURATION 97.6 % (92.0-98.5); BG PCO2 42.1 mmHg (35.0-45.0); BG PO2 103.6 mmHg (75.0-100.0); BG SAMPLE SITE RIGHT RADIAL; BG TOTAL HEMOGLOBIN 10.6 g/dL (12.0-18.0); BG VENT MODE MASK - BIPAP
[2019-11-17] MEDS: DOCUSATE SODIUM SUGAR FREE 100MG/10ML UDC NG PRN (09:41)
[2019-11-17] MEDS: DIPHENHYDRAMINE 50MG/ML VIAL IV PRN (09:41)
[2019-11-17] MEDS: METRONIDAZOLE 500 MG PREMIX 100 ML IV SCH ×2 (09:41→20:22)
[2019-11-17] MEDS: PANTOPRAZOLE SODIUM 40 MG/VIAL IV SCH (09:41)
[2019-11-17] MEDS: ASCORBIC ACID 500 MG TABLET PO SCH (09:42)
[2019-11-17] MEDS: THIAMINE HCL 100MG TABLET PO SCH (09:42)
[2019-11-17] MEDS: MIDODRINE HCL 5MG TABLET PO SCH ×3 (09:42→18:41)
[2019-11-17] MEDS: SULFAMETHOXAZOLE/TRIMETHOPRIM 800/160MG TABLET PO SCH (09:42)
[2019-11-17] MEDS: ZINC SULFATE 220 MG ( 50 ) CAPSULE PO SCH (09:42)
[2019-11-17 10:08] LABS: PLATELET ESTIMATE DECREASED
[2019-11-17] MEDS: METHYLPHENIDATE HCL 5MG TABLET PO SCH ×2 (11:22→18:41)
[2019-11-17 12:36] LABS: INR 1.7; PROTHROMBIN TIME 18.4 sec (9.6-11.0)
[2019-11-17] MEDS ORDERED: POTASSIUM CHLORIDE 20MEQ/PACKET PO NR (13:30)
[2019-11-17] MEDS ORDERED: LEVOFLOXACIN 500MG PREMIX 100 ML IV SCH (16:00)
[2019-11-17] MEDS: IPRATROPIUM/ALBUTEROL 0.5-3(2.5)MG/3ML NEB NEB PRN (23:48)
[2019-11-18] VITALS (97 sets, daily range): BP systolic 87–137; BP diastolic 22–73
[2019-11-18] MEDS: METOCLOPRAMIDE HCL 10MG/2ML VIAL IV SCH ×5 (00:36→23:43)
[2019-11-18] MEDS: SODIUM CHLORIDE IV SCH ×2 (03:06→18:14)
[2019-11-18] MEDS: DEXTROSE IV SCH ×2 (03:06→18:14)
[2019-11-18] MEDS: WATER IV SCH ×2 (03:06→18:14)
[2019-11-18] MEDS: [UNRECOGNIZED DRUG - OTHER] IV SCH ×2 (03:06→18:14)
[2019-11-18] MEDS: IPRATROPIUM BROMIDE (0.02%) 0.5MG/2.5ML NEB HHN SCH ×4 (03:50→21:49)
[2019-11-18 05:44] LABS: HEMATOCRIT. 29.5 % (42.0-52.0); HEMOGLOBIN. 9.6 g/dL (14.0-18.0); MEAN CORPUSCULAR VOLUME 89.2 fL (80.0-94.0); RED BLOOD CELL COUNT 3.31 mill/uL (4.7-6.1); RED CELL DISTRIBUTION WIDTH 22.9 % (11.6-14.6)
[2019-11-18] MEDS: SODIUM CHLORIDE 0.9% INJ 3ML FLUSH IVF SCH ×3 (06:01→21:18)
[2019-11-18] MEDS: BLOOD SUGAR DIAGNOSTIC STRIP TEST SCH ×4 (06:10→21:15)
[2019-11-18 07:20] LABS: NUCLEATED RED BLOOD CELLS 1 /100 WBC
[2019-11-18 07:24] LABS: PLATELET ESTIMATE DECREASED
[2019-11-18 07:31] LABS: BG BASE EXCESS 10.2 mmol/L (-2.0-2.0); BG BILEVEL POS AIRWAY PRESSURE 15/5; BG CARBOXYHEMOGLOBIN 0.6 % (0.5-1.5); BG DEOXYHEMOGLOBIN 4.1 % (0.0-5.0); BG FRACTION INSPIRED OXYGEN 40; BG HCO3 ACT 34.8 mmol/L (22.0-26.0); BG METHEMOGLOBIN 0.2 % (0.0-1.5); BG OXYGEN SATURATION 95.9 % (92.0-98.5); BG OXYHEMOGLOBIN 95.1 % (94.0-97.0); BG PCO2 46.7 mmHg (35.0-45.0); BG PO2 85.2 mmHg (75.0-100.0); BG SAMPLE SITE LEFT RADIAL; BG TOTAL HEMOGLOBIN 10.8 g/dL (12.0-18.0); BG VENT MODE MASK - BIPAP; BG VENT RATE 16 set
[2019-11-18] MEDS: ZINC SULFATE 220 MG ( 50 ) CAPSULE PO SCH (09:55)
[2019-11-18] MEDS: PANTOPRAZOLE SODIUM 40 MG/VIAL IV SCH (09:55)
[2019-11-18] MEDS: ASCORBIC ACID 500 MG TABLET PO SCH (09:55)
[2019-11-18] MEDS: DOCUSATE SODIUM SUGAR FREE 100MG/10ML UDC NG PRN (09:55)
[2019-11-18] MEDS: FUROSEMIDE 40MG/4ML VIAL IVP SCH (09:55)
[2019-11-18] MEDS: METRONIDAZOLE 500 MG PREMIX 100 ML IV SCH ×2 (09:55→21:17)
[2019-11-18] MEDS: MIDODRINE HCL 5MG TABLET PO SCH ×3 (09:56→18:23)
[2019-11-18] MEDS: METHYLPHENIDATE HCL 5MG TABLET PO SCH ×2 (09:59→18:23)
[2019-11-18] MEDS: THIAMINE HCL 100MG TABLET PO SCH (09:59)
[2019-11-18] MEDS: LEVOFLOXACIN 250MG PREMIX 50 ML IV SCH (18:14)
[2019-11-19] VITALS (94 sets, daily range): BP systolic 96–173; BP diastolic 32–94
[2019-11-19] MEDS: IPRATROPIUM BROMIDE (0.02%) 0.5MG/2.5ML NEB HHN SCH ×4 (01:51→20:00)
[2019-11-19] MEDS: DIPHENHYDRAMINE 50MG/ML VIAL IV PRN (04:25)
[2019-11-19] MEDS: MORPHINE SULFATE 2 MG/ML CPJ (NOT FOR IM USE) IV PRN ×2 (04:43→08:06)
[2019-11-19 05:07] LABS: HEMATOCRIT. 28.8 % (42.0-52.0); HEMOGLOBIN. 9.6 g/dL (14.0-18.0); MEAN CORPUSCULAR HEMOGLOBIN 29.9 pg (28.0-32.0); MEAN CORPUSCULAR VOLUME 90.1 fL (80.0-94.0); PLATELET 80 x1000/uL (130-400); RED BLOOD CELL COUNT 3.19 mill/uL (4.7-6.1); RED CELL DISTRIBUTION WIDTH 23.2 % (11.6-14.6)
[2019-11-19 05:18] LABS: INR 1.4; PROTHROMBIN TIME 15.4 sec (9.6-11.0)
[2019-11-19] MEDS: BLOOD SUGAR DIAGNOSTIC STRIP TEST SCH ×4 (06:47→20:25)
[2019-11-19] MEDS: METOCLOPRAMIDE HCL 10MG/2ML VIAL IV SCH ×3 (06:47→18:06)
[2019-11-19] MEDS: SODIUM CHLORIDE 0.9% INJ 3ML FLUSH IVF SCH ×2 (06:47→13:33)
[2019-11-19] MEDS: DEXTROSE IV SCH ×2 (07:00→20:27)
[2019-11-19] MEDS: [UNRECOGNIZED DRUG - OTHER] IV SCH ×2 (07:00→20:27)
[2019-11-19] MEDS: WATER IV SCH ×2 (07:00→20:27)
[2019-11-19] MEDS: SODIUM CHLORIDE IV SCH ×2 (07:00→20:27)
[2019-11-19 08:29] LABS: NUCLEATED RED BLOOD CELLS 2 /100 WBC
[2019-11-19 08:30] LABS: PLATELET ESTIMATE DECREASED
[2019-11-19] MEDS: PANTOPRAZOLE SODIUM 40 MG/VIAL IV SCH (09:16)
[2019-11-19] MEDS: METRONIDAZOLE 500 MG PREMIX 100 ML IV SCH ×2 (09:16→20:27)
[2019-11-19] MEDS: THIAMINE HCL 100MG TABLET PO SCH (09:16)
[2019-11-19] MEDS: ZINC SULFATE 220 MG ( 50 ) CAPSULE PO SCH (09:17)
[2019-11-19] MEDS: MIDODRINE HCL 5MG TABLET PO SCH ×3 (09:17→16:37)
[2019-11-19] MEDS: METHYLPHENIDATE HCL 5MG TABLET PO SCH ×2 (09:17→16:37)
[2019-11-19] MEDS: ASCORBIC ACID 500 MG TABLET PO SCH (09:17)
[2019-11-19] MEDS: FUROSEMIDE 40MG/4ML VIAL IVP SCH (09:18)
[2019-11-19] MEDS ORDERED: ALBUMIN HUMAN 25GM/100ML (25%) IV ONE (10:30)
[2019-11-19 10:50] LABS: BG BASE EXCESS 9.2 mmol/L (-2.0-2.0); BG CARBOXYHEMOGLOBIN 1.4 % (0.5-1.5); BG DEOXYHEMOGLOBIN 11.3 % (0.0-5.0); BG FRACTION INSPIRED OXYGEN 44; BG HCO3 ACT 33.3 mmol/L (22.0-26.0); BG METHEMOGLOBIN 0.1 % (0.0-1.5); BG OXYGEN SATURATION 88.5 % (92.0-98.5); BG OXYHEMOGLOBIN 87.2 % (94.0-97.0); BG PCO2 43.8 mmHg (35.0-45.0); BG PH 7.499 (7.350-7.450); BG PO2 57.2 mmHg (75.0-100.0); BG SAMPLE SITE RIGHT RADIAL; BG TOTAL HEMOGLOBIN 9.9 g/dL (12.0-18.0); BG VENT MODE NASAL CANNULA
[2019-11-19] MEDS: FLUDROCORTISONE ACETATE 0.1MG TABLET PO SCH (11:15)
[2019-11-19] MEDS ORDERED: SODIUM BICARBONATE 4% (2.4MEQ) 5ML VIAL IV ONE (14:28)
[2019-11-19 15:41] LABS: CREATINE KINASE 67 IU/L (39-308)
[2019-11-19] MEDS: LEVOFLOXACIN 250MG PREMIX 50 ML IV SCH (16:37)
[2019-11-19 19:14] LABS: CLARITY URINE TURBID (CLEAR); COLOR URINE DARK YELLOW (YELLOW); KETONES URINE NEGATIVE (NEGATIVE); LEUKOCYTE ESTERASE URINE 1+ (NEGATIVE); NITRITE URINE POSITIVE (NEGATIVE); OCCULT BLOOD URINE 3+ (NEGATIVE); PROTEIN URINE 2+ (NEGATIVE); SPECIFIC GRAVITY URINE 1.017 (1.005-1.030); UROBILINOGEN URINE 0.2 E.U./dL (0.2-1.0)
[2019-11-20] VITALS (93 sets, daily range): BP systolic 50–136; BP diastolic 28–93
[2019-11-20] MEDS: METOCLOPRAMIDE HCL 10MG/2ML VIAL IV SCH ×4 (00:24→17:03)
[2019-11-20] MEDS: IPRATROPIUM BROMIDE (0.02%) 0.5MG/2.5ML NEB HHN SCH ×4 (00:52→20:39)
[2019-11-20 06:02] LABS: HEMATOCRIT 27.7 % (42.0-52.0); MEAN CORPUSCULAR HEMOGLOBIN 29.8 pg (28.0-32.0); MEAN CORPUSCULAR VOLUME 92.1 fL (80.0-94.0); PLATELET 100 x1000/uL (130-400); RED BLOOD CELL COUNT 3.01 mill/uL (4.7-6.1); RED CELL DISTRIBUTION WIDTH 25.1 % (11.6-14.6)
[2019-11-20 06:07] LABS: CHLORIDE 105 mEq/L (98-107)
[2019-11-20] MEDS: BLOOD SUGAR DIAGNOSTIC STRIP TEST SCH ×4 (06:40→20:10)
[2019-11-20] MEDS: THIAMINE HCL 100MG TABLET PO SCH (07:53)
[2019-11-20] MEDS: METHYLPHENIDATE HCL 5MG TABLET PO SCH ×2 (07:53→17:03)
[2019-11-20] MEDS: ASCORBIC ACID 500 MG TABLET PO SCH (07:53)
[2019-11-20] MEDS: ZINC SULFATE 220 MG ( 50 ) CAPSULE PO SCH (07:53)
[2019-11-20] MEDS: PANTOPRAZOLE SODIUM 40 MG/VIAL IV SCH (07:54)
[2019-11-20] MEDS: MIDODRINE HCL 5MG TABLET PO SCH ×3 (08:02→17:06)
[2019-11-20] MEDS: FLUDROCORTISONE ACETATE 0.1MG TABLET PO SCH ×2 (08:03→20:12)
[2019-11-20] MEDS ORDERED: FLUDROCORTISONE ACETATE 0.1MG TABLET PO SCH (09:00)
[2019-11-20] MEDS: FUROSEMIDE 40MG TABLET PO SCH ×2 (09:10→17:06)
[2019-11-20] MEDS: LEVOFLOXACIN 250MG PREMIX 50 ML IV SCH (15:42)
[2019-11-20] MEDS: DEXTROSE 50% WATER 50ML SYRINGE IV PRN (17:40)
[2019-11-20] MEDS ORDERED: DEXTROSE 50% WATER 50ML SYRINGE IV SCH (19:45)
[2019-11-20] MEDS ORDERED: WATER IV SCH (21:00)
[2019-11-20] MEDS ORDERED: WATER DEXTROSE IV SCH (21:00)
[2019-11-20] MEDS ORDERED: DEXTROSE IV SCH (21:00)
[2019-11-21] VITALS (91 sets, daily range): BP systolic 91–139; BP diastolic 35–91
[2019-11-21] MEDS: IPRATROPIUM BROMIDE (0.02%) 0.5MG/2.5ML NEB HHN SCH ×4 (02:52→20:55)
[2019-11-21 05:27] LABS: BASOPHILS % 0.4 % (0.0-2.0); HEMATOCRIT. 26.3 % (42.0-52.0); HEMOGLOBIN. 8.5 g/dL (14.0-18.0); LYMPHOCYTES % 9.2 % (20.0-50.0); MEAN CORPUSCULAR HEMOGLOBIN 29.9 pg (28.0-32.0); MEAN CORPUSCULAR VOLUME 92.2 fL (80.0-94.0); MONOCYTES % 8.1 % (2.0-8.0); NEUTROPHILS % 82.3 % (40.0-76.0); RED BLOOD CELL COUNT 2.85 mill/uL (4.7-6.1); RED CELL DISTRIBUTION WIDTH 24.5 % (11.6-14.6)
[2019-11-21] MEDS: METOCLOPRAMIDE HCL 10MG/2ML VIAL IV SCH ×4 (06:35→17:57)
[2019-11-21] MEDS: FUROSEMIDE 40MG TABLET PO SCH (06:35)
[2019-11-21] MEDS: BLOOD SUGAR DIAGNOSTIC STRIP TEST SCH ×4 (07:24→20:39)
[2019-11-21 07:46] LABS: MEAN PLATELET VOLUME 11.7 fl (7.4-10.4); PLATELET 85 x1000/uL (130-400)
[2019-11-21 07:57] LABS: BG BASE EXCESS 5.5 mmol/L (-2.0-2.0); BG BILEVEL POS AIRWAY PRESSURE 15/5; BG CARBOXYHEMOGLOBIN 0.7 % (0.5-1.5); BG DEOXYHEMOGLOBIN 2.2 % (0.0-5.0); BG HCO3 ACT 30.8 mmol/L (22.0-26.0); BG METHEMOGLOBIN 0.2 % (0.0-1.5); BG OXYGEN SATURATION 97.8 % (92.0-98.5); BG OXYHEMOGLOBIN 96.9 % (94.0-97.0); BG PCO2 48.4 mmHg (35.0-45.0); BG PH 7.421 (7.350-7.450); BG PO2 113.2 mmHg (75.0-100.0); BG SAMPLE SITE LEFT RADIAL; BG TOTAL HEMOGLOBIN 9.6 g/dL (12.0-18.0); BG VENT MODE MASK - BIPAP; BG VENT RATE 16 set
[2019-11-21] MEDS ORDERED: INSULIN LISPRO 100 UNITS/ML SUBCUT PRN (08:00)
[2019-11-21] MEDS: MIDODRINE HCL 5MG TABLET PO SCH ×3 (08:52→17:56)
[2019-11-21] MEDS: METHYLPHENIDATE HCL 5MG TABLET PO SCH ×2 (08:53→17:57)
[2019-11-21] MEDS: THIAMINE HCL 100MG TABLET PO SCH (08:53)
[2019-11-21] MEDS: PANTOPRAZOLE SODIUM 40 MG/VIAL IV SCH (08:53)
[2019-11-21] MEDS: FLUDROCORTISONE ACETATE 0.1MG TABLET PO SCH ×2 (08:53→20:41)
[2019-11-21] MEDS: ZINC SULFATE 220 MG ( 50 ) CAPSULE PO SCH (08:53)
[2019-11-21] MEDS: FUROSEMIDE 40MG/4ML VIAL IVP SCH (08:53)
[2019-11-21] MEDS: ASCORBIC ACID 500 MG TABLET PO SCH (08:53)
[2019-11-21] MEDS ORDERED: SODIUM POLYSTYRENE SULFONATE 15 G/60 ML BOT PO SCH (10:00)
[2019-11-21] MEDS: METOLAZONE 5MG TABLET PO SCH (11:32)
[2019-11-21] MEDS: LEVOFLOXACIN 250MG PREMIX 50 ML IV SCH (16:38)
[2019-11-21] MEDS: NOREPINEPHRINE 32 MG in DEXT 5% WATER 468 ML IV PRN (16:38)
[2019-11-22] VITALS (61 sets, daily range): BP systolic 87–125; BP diastolic 44–81
[2019-11-22] MEDS: METOCLOPRAMIDE HCL 10MG/2ML VIAL IV SCH ×4 (02:36→17:06)
[2019-11-22] MEDS: IPRATROPIUM BROMIDE (0.02%) 0.5MG/2.5ML NEB HHN SCH ×4 (02:59→20:19)
[2019-11-22 05:36] LABS: BASOPHILS % 0.2 % (0.0-2.0); HEMATOCRIT. 27.7 % (42.0-52.0); HEMOGLOBIN. 9.2 g/dL (14.0-18.0); LYMPHOCYTES % 7.6 % (20.0-50.0); MEAN CORPUSCULAR HEMOGLOBIN 30.6 pg (28.0-32.0); MEAN PLATELET VOLUME 11.5 fl (7.4-10.4); MONOCYTES % 6.4 % (2.0-8.0); NEUTROPHILS % 85.8 % (40.0-76.0); PLATELET 108 x1000/uL (130-400); RED BLOOD CELL COUNT 3.01 mill/uL (4.7-6.1); RED CELL DISTRIBUTION WIDTH 24.5 % (11.6-14.6)
[2019-11-22] MEDS: BLOOD SUGAR DIAGNOSTIC STRIP TEST SCH ×4 (06:24→20:21)
[2019-11-22 06:59] LABS: PHOSPHORUS 6.1 mg/dL (2.5-4.9)
[2019-11-22 08:04] LABS: PLATELET ESTIMATE DECREASED
[2019-11-22] MEDS: PANTOPRAZOLE SODIUM 40 MG/VIAL IV SCH (09:13)
[2019-11-22] MEDS: FLUDROCORTISONE ACETATE 0.1MG TABLET PO SCH ×2 (09:13→20:21)
[2019-11-22] MEDS: FUROSEMIDE 40MG/4ML VIAL IVP SCH (09:13)
[2019-11-22] MEDS: ZINC SULFATE 220 MG ( 50 ) CAPSULE PO SCH (09:13)
[2019-11-22] MEDS: MIDODRINE HCL 5MG TABLET PO SCH ×3 (09:14→17:05)
[2019-11-22] MEDS: THIAMINE HCL 100MG TABLET PO SCH (09:14)
[2019-11-22] MEDS: METHYLPHENIDATE HCL 5MG TABLET PO SCH ×2 (09:14→17:05)
[2019-11-22] MEDS: METOLAZONE 5MG TABLET PO SCH (09:14)
[2019-11-22] MEDS: ASCORBIC ACID 500 MG TABLET PO SCH (09:14)
[2019-11-22] MEDS: ACETAMINOPHEN 325MG TABLET PO PRN (10:43)
[2019-11-22] MEDS: LEVOFLOXACIN 250MG PREMIX 50 ML IV SCH (16:18)
[2019-11-23] VITALS (47 sets, daily range): BP systolic 73–111; BP diastolic 28–76
[2019-11-23] MEDS: METOCLOPRAMIDE HCL 10MG/2ML VIAL IV SCH ×5 (00:24→23:48)
[2019-11-23] MEDS: IPRATROPIUM BROMIDE (0.02%) 0.5MG/2.5ML NEB HHN SCH ×4 (02:33→20:18)
[2019-11-23 04:30] LABS: HEMOGLOBIN. 9.2 g/dL (14.0-18.0); MEAN CORPUSCULAR HEMOGLOBIN 30.9 pg (28.0-32.0); MEAN PLATELET VOLUME 11.7 fl (7.4-10.4); PLATELET 122 x1000/uL (130-400); RED BLOOD CELL COUNT 2.98 mill/uL (4.7-6.1); RED CELL DISTRIBUTION WIDTH 25.1 % (11.6-14.6)
[2019-11-23] MEDS: BLOOD SUGAR DIAGNOSTIC STRIP TEST SCH ×4 (06:26→20:51)
[2019-11-23 08:17] LABS: NUCLEATED RED BLOOD CELLS 10 /100 WBC; PLATELET ESTIMATE SLIGHTLY DECREASED
[2019-11-23] MEDS: ZINC SULFATE 220 MG ( 50 ) CAPSULE PO SCH (09:23)
[2019-11-23] MEDS: MIDODRINE HCL 5MG TABLET PO SCH (09:23)
[2019-11-23] MEDS: METHYLPHENIDATE HCL 5MG TABLET PO SCH ×2 (09:23→17:30)
[2019-11-23] MEDS: FUROSEMIDE 40MG/4ML VIAL IVP SCH (09:24)
[2019-11-23] MEDS: FLUDROCORTISONE ACETATE 0.1MG TABLET PO SCH ×2 (09:24→20:51)
[2019-11-23] MEDS: METOLAZONE 5MG TABLET PO SCH (09:24)
[2019-11-23] MEDS: PANTOPRAZOLE SODIUM 40 MG/VIAL IV SCH (09:24)
[2019-11-23] MEDS: ASCORBIC ACID 500 MG TABLET PO SCH (09:24)
[2019-11-23] MEDS: LEVOFLOXACIN 250MG PREMIX 50 ML IV SCH (18:27)
[2019-11-24] VITALS (60 sets, daily range): BP systolic 45–107; BP diastolic 29–75
[2019-11-24] MEDS: IPRATROPIUM BROMIDE (0.02%) 0.5MG/2.5ML NEB HHN SCH ×5 (02:11→20:04)
[2019-11-24 05:38] LABS: INR 1.6; PROTHROMBIN TIME 16.7 sec (9.6-11.0)
[2019-11-24] MEDS: BLOOD SUGAR DIAGNOSTIC STRIP TEST SCH ×4 (05:53→21:19)
[2019-11-24] MEDS: METOCLOPRAMIDE HCL 10MG/2ML VIAL IV SCH ×3 (05:54→18:48)
[2019-11-24 06:00] LABS: HEMATOCRIT. 27.6 % (42.0-52.0); HEMOGLOBIN. 9.1 g/dL (14.0-18.0); MEAN CORPUSCULAR HEMOGLOBIN 31.2 pg (28.0-32.0); MEAN PLATELET VOLUME 11.8 fl (7.4-10.4); PLATELET 104 x1000/uL (130-400); RED BLOOD CELL COUNT 2.91 mill/uL (4.7-6.1); RED CELL DISTRIBUTION WIDTH 26.5 % (11.6-14.6)
[2019-11-24 07:41] LABS: NUCLEATED RED BLOOD CELLS 7 /100 WBC; PLATELET ESTIMATE DECREASED
[2019-11-24] MEDS: FUROSEMIDE 40MG/4ML VIAL IVP SCH (08:43)
[2019-11-24] MEDS: ZINC SULFATE 220 MG ( 50 ) CAPSULE PO SCH (08:43)
[2019-11-24] MEDS: METHYLPHENIDATE HCL 5MG TABLET PO SCH ×2 (08:43→18:47)
[2019-11-24] MEDS: PANTOPRAZOLE SODIUM 40 MG/VIAL IV SCH (08:43)
[2019-11-24] MEDS: ASCORBIC ACID 500 MG TABLET PO SCH (08:44)
[2019-11-24] MEDS: ACETAMINOPHEN 325MG TABLET PO PRN ×2 (08:44→18:48)
[2019-11-24] MEDS: METOLAZONE 5MG TABLET PO SCH (08:44)
[2019-11-24] MEDS: FLUDROCORTISONE ACETATE 0.1MG TABLET PO SCH ×2 (08:44→21:13)
[2019-11-24] MEDS ORDERED: PHYTONADIONE 10MG/ML AMP SUBCUT NR (09:45)
[2019-11-24] MEDS ORDERED: LIDOCAINE HCL 1% 20ML VIAL (Pyxis) INJ ONE (10:36)
[2019-11-24 14:39] LABS: HEPATITIS B SURFACE AB 14.7 mIU/mL
[2019-11-24 14:50] LABS: HEPATITIS B SURFACE ANTIGEN NEGATIVE
[2019-11-24 15:19] LABS: HEPATITIS A AB IGM NEGATIVE (NEGATIVE)
[2019-11-25] VITALS (80 sets, daily range): BP systolic 87–167; BP diastolic 22–99
[2019-11-25] MEDS: METOCLOPRAMIDE HCL 10MG/2ML VIAL IV SCH ×4 (00:04→18:50)
[2019-11-25] MEDS: IPRATROPIUM BROMIDE (0.02%) 0.5MG/2.5ML NEB HHN SCH ×4 (01:53→20:12)
[2019-11-25 05:26] LABS: HEMATOCRIT. 27.1 % (42.0-52.0); HEMOGLOBIN. 9.1 g/dL (14.0-18.0); MEAN CORPUSCULAR HEMOGLOBIN 32.2 pg (28.0-32.0); MEAN CORPUSCULAR VOLUME 96.3 fL (80.0-94.0); MEAN PLATELET VOLUME 11.2 fl (7.4-10.4); PLATELET 97 x1000/uL (130-400); RED BLOOD CELL COUNT 2.82 mill/uL (4.7-6.1); RED CELL DISTRIBUTION WIDTH 30.9 % (11.6-14.6)
[2019-11-25] MEDS: BLOOD SUGAR DIAGNOSTIC STRIP TEST SCH ×4 (06:37→20:36)
[2019-11-25 08:47] LABS: NUCLEATED RED BLOOD CELLS 6 /100 WBC
[2019-11-25 08:48] LABS: PLATELET ESTIMATE SLIGHTLY DECREASED
[2019-11-25] MEDS: METHYLPHENIDATE HCL 5MG TABLET PO SCH ×2 (09:11→18:50)
[2019-11-25] MEDS: ASCORBIC ACID 500 MG TABLET PO SCH (09:11)
[2019-11-25] MEDS: ZINC SULFATE 220 MG ( 50 ) CAPSULE PO SCH (09:11)
[2019-11-25] MEDS: FLUDROCORTISONE ACETATE 0.1MG TABLET PO SCH ×2 (09:11→20:36)
[2019-11-25] MEDS: MORPHINE SULFATE 2 MG/ML CPJ (NOT FOR IM USE) IV PRN (21:08)
[2019-11-26] VITALS (12 sets, daily range): BP systolic 97–148; BP diastolic 62–74
[2019-11-26] MEDS: METOCLOPRAMIDE HCL 10MG/2ML VIAL IV SCH ×4 (00:20→17:21)
[2019-11-26] MEDS: IPRATROPIUM BROMIDE (0.02%) 0.5MG/2.5ML NEB HHN SCH ×4 (01:46→21:30)
[2019-11-26] MEDS: BLOOD SUGAR DIAGNOSTIC STRIP TEST SCH ×4 (07:30→21:26)
[2019-11-26] MEDS: ASCORBIC ACID 500 MG TABLET PO SCH (08:41)
[2019-11-26] MEDS: FLUDROCORTISONE ACETATE 0.1MG TABLET PO SCH ×2 (08:41→21:26)
[2019-11-26] MEDS: ZINC SULFATE 220 MG ( 50 ) CAPSULE PO SCH (08:41)
[2019-11-26] MEDS: METHYLPHENIDATE HCL 5MG TABLET PO SCH (09:00)
[2019-11-26 10:00] LABS: HEMATOCRIT 27.8 % (42.0-52.0); HEMOGLOBIN 9.1 g/dL (14.0-18.0); MEAN CORPUSCULAR HEMOGLOBIN 32.1 pg (28.0-32.0); MEAN CORPUSCULAR VOLUME 97.5 fL (80.0-94.0); PLATELET 94 x1000/uL (130-400); RED BLOOD CELL COUNT 2.85 mill/uL (4.7-6.1); RED CELL DISTRIBUTION WIDTH 31.6 % (11.6-14.6)
[2019-11-27] VITALS (12 sets, daily range): BP systolic 95–112; BP diastolic 37–78
[2019-11-27] MEDS: METOCLOPRAMIDE HCL 10MG/2ML VIAL IV SCH ×4 (00:31→18:37)
[2019-11-27] MEDS: IPRATROPIUM BROMIDE (0.02%) 0.5MG/2.5ML NEB HHN SCH ×4 (01:35→20:11)
[2019-11-27 07:21] LABS: HEMATOCRIT. 26.8 % (42.0-52.0); HEMOGLOBIN. 8.9 g/dL (14.0-18.0); MEAN CORPUSCULAR HEMOGLOBIN 32.2 pg (28.0-32.0); MEAN CORPUSCULAR VOLUME 96.4 fL (80.0-94.0); MEAN PLATELET VOLUME 11.1 fl (7.4-10.4); PLATELET 94 x1000/uL (130-400); RED BLOOD CELL COUNT 2.78 mill/uL (4.7-6.1); RED CELL DISTRIBUTION WIDTH 30.8 % (11.6-14.6)
[2019-11-27] MEDS: BLOOD SUGAR DIAGNOSTIC STRIP TEST SCH ×4 (08:27→21:50)
[2019-11-27] MEDS: ZINC SULFATE 220 MG ( 50 ) CAPSULE PO SCH (09:58)
[2019-11-27] MEDS: ASCORBIC ACID 500 MG TABLET PO SCH (09:58)
[2019-11-27] MEDS: FLUDROCORTISONE ACETATE 0.1MG TABLET PO SCH ×2 (09:58→21:43)
[2019-11-27 12:20] LABS: NUCLEATED RED BLOOD CELLS 1 /100 WBC; PLATELET ESTIMATE DECREASED
[2019-11-27] MEDS: MORPHINE SULFATE 2 MG/ML CPJ (NOT FOR IM USE) IV PRN (21:52)
[2019-11-28] VITALS (12 sets, daily range): BP systolic 94–116; BP diastolic 65–78
[2019-11-28] MEDS: METOCLOPRAMIDE HCL 10MG/2ML VIAL IV SCH ×4 (00:39→18:38)
[2019-11-28] MEDS: IPRATROPIUM BROMIDE (0.02%) 0.5MG/2.5ML NEB HHN SCH ×4 (03:28→21:07)
[2019-11-28] MEDS: BLOOD SUGAR DIAGNOSTIC STRIP TEST SCH ×3 (08:23→17:30)
[2019-11-28] MEDS: FLUDROCORTISONE ACETATE 0.1MG TABLET PO SCH ×2 (09:00→21:41)
[2019-11-28] MEDS: ZINC SULFATE 220 MG ( 50 ) CAPSULE PO SCH (09:00)
[2019-11-28] MEDS: ASCORBIC ACID 500 MG TABLET PO SCH (09:00)
[2019-11-28] MEDS: MORPHINE SULFATE 2 MG/ML CPJ (NOT FOR IM USE) IV PRN (16:32)
[2019-11-29] VITALS (12 sets, daily range): BP systolic 93–107; BP diastolic 60–74
[2019-11-29] MEDS: METOCLOPRAMIDE HCL 10MG/2ML VIAL IV SCH ×4 (00:39→18:27)
[2019-11-29] MEDS: IPRATROPIUM BROMIDE (0.02%) 0.5MG/2.5ML NEB HHN SCH ×4 (02:29→21:15)
[2019-11-29 07:09] LABS: MEAN CORPUSCULAR HEMOGLOBIN 32.3 pg (28.0-32.0); MEAN CORPUSCULAR VOLUME 99.3 fL (80.0-94.0); MEAN PLATELET VOLUME 10.3 fl (7.4-10.4); PLATELET 67 x1000/uL (130-400); RED BLOOD CELL COUNT 3.42 mill/uL (4.7-6.1); RED CELL DISTRIBUTION WIDTH 29.7 % (11.6-14.6)
[2019-11-29] MEDS: ZINC SULFATE 220 MG ( 50 ) CAPSULE PO SCH (09:30)
[2019-11-29] MEDS: ASCORBIC ACID 500 MG TABLET PO SCH (09:30)
[2019-11-29] MEDS: FLUDROCORTISONE ACETATE 0.1MG TABLET PO SCH ×2 (09:30→21:15)
[2019-11-29 10:39] LABS: NUCLEATED RED BLOOD CELLS 1 /100 WBC
[2019-11-29 10:43] LABS: PLATELET ESTIMATE DECREASED
[2019-11-29] MEDS: MORPHINE SULFATE 2 MG/ML CPJ (NOT FOR IM USE) IV PRN ×2 (12:32→18:28)
[2019-11-30] VITALS (12 sets, daily range): BP systolic 88–123; BP diastolic 49–74
[2019-11-30] MEDS: MORPHINE SULFATE 2 MG/ML CPJ (NOT FOR IM USE) IV PRN ×2 (00:05→13:05)
[2019-11-30] MEDS: METOCLOPRAMIDE HCL 10MG/2ML VIAL IV SCH ×4 (00:05→18:00)
[2019-11-30] MEDS: IPRATROPIUM BROMIDE (0.02%) 0.5MG/2.5ML NEB HHN SCH ×4 (03:25→20:16)
[2019-11-30] MEDS: FLUDROCORTISONE ACETATE 0.1MG TABLET PO SCH ×2 (09:44→21:39)
[2019-11-30] MEDS: ASCORBIC ACID 500 MG TABLET PO SCH (09:44)
[2019-11-30] MEDS ORDERED: MORPHINE SULFATE 2 MG/ML CPJ (NOT FOR IM USE) IV PRN (21:45)
[2019-12-01] VITALS (11 sets, daily range): BP systolic 88–109; BP diastolic 54–70
[2019-12-01] MEDS: METOCLOPRAMIDE HCL 10MG/2ML VIAL IV SCH ×4 (00:22→17:17)
[2019-12-01] MEDS: IPRATROPIUM BROMIDE (0.02%) 0.5MG/2.5ML NEB HHN SCH ×4 (02:34→20:07)
[2019-12-01 06:13] LABS: HEMATOCRIT. 30.2 % (42.0-52.0); MEAN CORPUSCULAR HEMOGLOBIN 32.7 pg (28.0-32.0); MEAN CORPUSCULAR VOLUME 98.8 fL (80.0-94.0); MEAN PLATELET VOLUME 11.1 fl (7.4-10.4); PLATELET 55 x1000/uL (130-400); RED BLOOD CELL COUNT 3.05 mill/uL (4.7-6.1); RED CELL DISTRIBUTION WIDTH 27.7 % (11.6-14.6)
[2019-12-01] MEDS: ASCORBIC ACID 500 MG TABLET PO SCH ×2 (08:09→11:00)
[2019-12-01] MEDS: FLUDROCORTISONE ACETATE 0.1MG TABLET PO SCH ×3 (08:09→21:22)
[2019-12-01] MEDS: MIDODRINE HCL 5MG TABLET PO SCH ×3 (11:01→17:17)
[2019-12-01 12:17] LABS: NUCLEATED RED BLOOD CELLS 2 /100 WBC; PLATELET ESTIMATE DECREASED
[2019-12-01 12:18] LABS: ATYPICAL LYMPHOCYTES 13
[2019-12-01] MEDS: AMOXICILLIN/POTASSIUM CLAVULANATE 500/125MG TAB PO SCH (21:22)
[2019-12-02] VITALS: BP 90/76
[2019-12-02] MEDS: METOCLOPRAMIDE HCL 10MG/2ML VIAL IV SCH ×4 (00:10→17:27)
[2019-12-02] MEDS: ACETAMINOPHEN 325MG TABLET PO PRN (00:10)
[2019-12-02] MEDS: IPRATROPIUM BROMIDE (0.02%) 0.5MG/2.5ML NEB HHN SCH ×5 (00:59→19:59)
[2019-12-02 04:00] VITALS: BP 82/56
[2019-12-02 06:45] LABS: HEMATOCRIT. 32.4 % (42.0-52.0); HEMOGLOBIN. 10.7 g/dL (14.0-18.0); MEAN CORPUSCULAR HEMOGLOBIN 32.7 pg (28.0-32.0); MEAN CORPUSCULAR VOLUME 99.3 fL (80.0-94.0); RED BLOOD CELL COUNT 3.26 mill/uL (4.7-6.1); RED CELL DISTRIBUTION WIDTH 27.9 % (11.6-14.6)
[2019-12-02 08:00] VITALS: BP 97/64
[2019-12-02] MEDS: AMOXICILLIN/POTASSIUM CLAVULANATE 500/125MG TAB PO SCH ×2 (08:07→21:23)
[2019-12-02] MEDS: MIDODRINE HCL 5MG TABLET PO SCH ×3 (08:08→17:21)
[2019-12-02] MEDS: ASCORBIC ACID 500 MG TABLET PO SCH (08:08)
[2019-12-02] MEDS: FLUDROCORTISONE ACETATE 0.1MG TABLET PO SCH ×2 (08:08→21:23)
[2019-12-02 09:35] LABS: NUCLEATED RED BLOOD CELLS 1 /100 WBC; PLATELET ESTIMATE MARKEDLY DECREASED
[2019-12-02 09:36] LABS: PLATELET 47 x1000/uL (130-400)
[2019-12-02 12:00] VITALS: BP 81/49
[2019-12-02] MEDS: DEXTROSE 50% WATER 50ML SYRINGE IV PRN (12:31)
[2019-12-02 16:00] VITALS: BP 81/59
[2019-12-02] MEDS: BLOOD SUGAR DIAGNOSTIC STRIP TEST SCH (17:20)
[2019-12-02 20:00] VITALS: BP 83/58
[2019-12-03] MEDS: BLOOD SUGAR DIAGNOSTIC STRIP TEST SCH ×5 (00:34→23:26)
[2019-12-03] MEDS: METOCLOPRAMIDE HCL 10MG/2ML VIAL IV SCH ×5 (00:34→23:25)
[2019-12-03] MEDS: DEXTROSE 50% WATER 50ML SYRINGE IV PRN ×3 (00:48→06:13)
[2019-12-03] MEDS: IPRATROPIUM BROMIDE (0.02%) 0.5MG/2.5ML NEB HHN SCH ×4 (01:54→20:44)
[2019-12-03 04:00] VITALS: BP 120/64
[2019-12-03 07:49] VITALS: BP 96/67
[2019-12-03] MEDS: FLUDROCORTISONE ACETATE 0.1MG TABLET PO SCH ×2 (09:02→20:48)
[2019-12-03] MEDS: AMOXICILLIN/POTASSIUM CLAVULANATE 500/125MG TAB PO SCH ×2 (09:02→20:50)
[2019-12-03] MEDS: MIDODRINE HCL 5MG TABLET PO SCH ×3 (09:02→18:09)
[2019-12-03] MEDS: ASCORBIC ACID 500 MG TABLET PO SCH (09:03)
[2019-12-03 12:00] VITALS: BP 124/51
[2019-12-03 14:24] LABS: HEMATOCRIT. 30.1 % (42.0-52.0); HEMOGLOBIN. 9.8 g/dL (14.0-18.0); MEAN CORPUSCULAR HEMOGLOBIN 32.5 pg (28.0-32.0); MEAN CORPUSCULAR VOLUME 99.7 fL (80.0-94.0); MEAN PLATELET VOLUME 11.4 fl (7.4-10.4); RED BLOOD CELL COUNT 3.02 mill/uL (4.7-6.1); RED CELL DISTRIBUTION WIDTH 27.1 % (11.6-14.6)
[2019-12-03 14:34] LABS: PLATELET 36 x1000/uL (130-400)
[2019-12-03] MEDS ORDERED: HEPARIN SODIUM 1,000 UNIT/1ML VIAL IV SCH (14:45)
[2019-12-03 16:00] VITALS: BP 112/60
[2019-12-03 20:00] VITALS: BP 119/59
[2019-12-03 22:00] VITALS: BP 112/58
[2019-12-04] VITALS (9 sets, daily range): BP systolic 105–135; BP diastolic 59–65
[2019-12-04] MEDS: IPRATROPIUM BROMIDE (0.02%) 0.5MG/2.5ML NEB HHN SCH ×3 (03:46→16:12)
[2019-12-04 04:51] LABS: PLATELET ESTIMATE MARKEDLY DECREASED
[2019-12-04 05:21] LABS: HEMATOCRIT. 30.7 % (42.0-52.0); HEMOGLOBIN. 10.1 g/dL (14.0-18.0); MEAN CORPUSCULAR HEMOGLOBIN 32.6 pg (28.0-32.0); MEAN CORPUSCULAR VOLUME 98.7 fL (80.0-94.0); MEAN PLATELET VOLUME 9.2 fl (7.4-10.4); RED BLOOD CELL COUNT 3.11 mill/uL (4.7-6.1); RED CELL DISTRIBUTION WIDTH 27.2 % (11.6-14.6)
[2019-12-04] MEDS: METOCLOPRAMIDE HCL 10MG/2ML VIAL IV SCH ×4 (05:45→22:57)
[2019-12-04] MEDS: BLOOD SUGAR DIAGNOSTIC STRIP TEST SCH ×3 (05:50→18:34)
[2019-12-04] MEDS: ASCORBIC ACID 500 MG TABLET PO SCH (08:26)
[2019-12-04] MEDS: AMOXICILLIN/POTASSIUM CLAVULANATE 500/125MG TAB PO SCH ×2 (08:26→20:41)
[2019-12-04] MEDS: FLUDROCORTISONE ACETATE 0.1MG TABLET PO SCH ×2 (08:27→20:42)
[2019-12-04] MEDS: MIDODRINE HCL 5MG TABLET PO SCH ×3 (08:27→18:20)
[2019-12-04 08:41] LABS: NUCLEATED RED BLOOD CELLS 1 /100 WBC
[2019-12-04 08:42] LABS: PLATELET ESTIMATE MARKEDLY DECREASED
[2019-12-04 08:43] LABS: PLATELET 26 x1000/uL (130-400)
[2019-12-05] VITALS: BP 122/64
[2019-12-05] MEDS: METOCLOPRAMIDE HCL 10MG/2ML VIAL IV SCH ×4 (05:27→23:35)
[2019-12-05] MEDS: BLOOD SUGAR DIAGNOSTIC STRIP TEST SCH ×5 (05:30→23:42)
[2019-12-05] MEDS: DEXTROSE 50% WATER 50ML SYRINGE IV PRN (06:14)
[2019-12-05 07:11] LABS: HEMATOCRIT. 30.6 % (42.0-52.0); HEMOGLOBIN. 9.9 g/dL (14.0-18.0); MEAN CORPUSCULAR HEMOGLOBIN 32.1 pg (28.0-32.0); MEAN CORPUSCULAR VOLUME 99.1 fL (80.0-94.0); MEAN PLATELET VOLUME 10.2 fl (7.4-10.4); RED BLOOD CELL COUNT 3.09 mill/uL (4.7-6.1); RED CELL DISTRIBUTION WIDTH 26.1 % (11.6-14.6)
[2019-12-05 08:00] VITALS: BP 107/55
[2019-12-05 08:16] LABS: PLATELET 22 x1000/uL (130-400)
[2019-12-05 08:29] LABS: NUCLEATED RED BLOOD CELLS 1 /100 WBC
[2019-12-05 08:30] LABS: PLATELET ESTIMATE MARKEDLY DECREASED
[2019-12-05] MEDS: MIDODRINE HCL 5MG TABLET PO SCH ×3 (09:24→19:34)
[2019-12-05] MEDS: AMOXICILLIN/POTASSIUM CLAVULANATE 500/125MG TAB PO SCH ×2 (09:24→21:00)
[2019-12-05] MEDS: FLUDROCORTISONE ACETATE 0.1MG TABLET PO SCH ×2 (09:24→21:00)
[2019-12-05] MEDS: ASCORBIC ACID 500 MG TABLET PO SCH (09:24)
[2019-12-05 12:00] VITALS: BP 113/62
[2019-12-05 16:00] VITALS: BP 106/63
[2019-12-05 20:00] VITALS: BP 107/60
[2019-12-05 22:00] VITALS: BP 117/65
[2019-12-06] VITALS (11 sets, daily range): BP systolic 86–110; BP diastolic 50–62
[2019-12-06] MEDS: METOCLOPRAMIDE HCL 10MG/2ML VIAL IV SCH ×3 (05:00→17:30)
[2019-12-06] MEDS: BLOOD SUGAR DIAGNOSTIC STRIP TEST SCH ×3 (06:21→17:31)
[2019-12-06 07:42] LABS: HEMATOCRIT. 30.8 % (42.0-52.0); HEMOGLOBIN. 9.9 g/dL (14.0-18.0); MEAN CORPUSCULAR HEMOGLOBIN 31.8 pg (28.0-32.0); MEAN CORPUSCULAR VOLUME 98.6 fL (80.0-94.0); MEAN PLATELET VOLUME 8.9 fl (7.4-10.4); RED BLOOD CELL COUNT 3.12 mill/uL (4.7-6.1); RED CELL DISTRIBUTION WIDTH 25.2 % (11.6-14.6)
[2019-12-06] MEDS: AMOXICILLIN/POTASSIUM CLAVULANATE 500/125MG TAB PO SCH (09:03)
[2019-12-06] MEDS: MIDODRINE HCL 5MG TABLET PO SCH ×3 (09:03→17:30)
[2019-12-06] MEDS: FLUDROCORTISONE ACETATE 0.1MG TABLET PO SCH ×2 (09:03→20:31)
[2019-12-06] MEDS: ASCORBIC ACID 500 MG TABLET PO SCH (09:03)
[2019-12-06 10:32] LABS: NUCLEATED RED BLOOD CELLS 6 /100 WBC
[2019-12-06 10:33] LABS: PLATELET ESTIMATE MARKEDLY DECREASED
[2019-12-06 10:42] LABS: PLATELET 19 x1000/uL (130-400)
[2019-12-06] MEDS: DOXYCYCLINE HYCLATE 100MG CAPSULE PO SCH ×2 (12:54→20:31)
[2019-12-07] VITALS (8 sets, daily range): BP systolic 92–108; BP diastolic 51–66
[2019-12-07] MEDS: BLOOD SUGAR DIAGNOSTIC STRIP TEST SCH ×5 (00:10→23:05)
[2019-12-07] MEDS: METOCLOPRAMIDE HCL 10MG/2ML VIAL IV SCH ×5 (00:20→23:05)
[2019-12-07] MEDS: DEXTROSE 50% WATER 50ML SYRINGE IV PRN ×3 (05:25→23:13)
[2019-12-07] MEDS: DOXYCYCLINE HYCLATE 100MG CAPSULE PO SCH ×2 (08:44→21:49)
[2019-12-07] MEDS: FLUDROCORTISONE ACETATE 0.1MG TABLET PO SCH ×2 (08:45→21:50)
[2019-12-07] MEDS: MIDODRINE HCL 5MG TABLET PO SCH ×3 (08:45→18:35)
[2019-12-07] MEDS: ASCORBIC ACID 500 MG TABLET PO SCH (08:45)
[2019-12-07] MEDS ORDERED: HEPARIN SODIUM 1,000 UNIT/1ML VIAL IV SCH (10:30)
[2019-12-08] VITALS (11 sets, daily range): BP systolic 93–115; BP diastolic 46–69
[2019-12-08] MEDS: BLOOD SUGAR DIAGNOSTIC STRIP TEST SCH ×3 (05:23→17:42)
[2019-12-08] MEDS: METOCLOPRAMIDE HCL 10MG/2ML VIAL IV SCH ×3 (05:23→18:14)
[2019-12-08 06:03] LABS: HEMATOCRIT. 31.5 % (42.0-52.0); HEMOGLOBIN. 10.3 g/dL (14.0-18.0); MEAN CORPUSCULAR HEMOGLOBIN 32.6 pg (28.0-32.0); MEAN CORPUSCULAR VOLUME 99.8 fL (80.0-94.0); RED BLOOD CELL COUNT 3.16 mill/uL (4.7-6.1); RED CELL DISTRIBUTION WIDTH 23.2 % (11.6-14.6)
[2019-12-08 08:42] LABS: NUCLEATED RED BLOOD CELLS 5 /100 WBC
[2019-12-08 08:44] LABS: PLATELET ESTIMATE MARKEDLY DECREASED
[2019-12-08 08:47] LABS: PLATELET 35 x1000/uL (130-400)
[2019-12-08] MEDS: FLUDROCORTISONE ACETATE 0.1MG TABLET PO SCH ×2 (10:06→21:12)
[2019-12-08] MEDS: ASCORBIC ACID 500 MG TABLET PO SCH (10:06)
[2019-12-08] MEDS: DOXYCYCLINE HYCLATE 100MG CAPSULE PO SCH ×2 (10:07→21:12)
[2019-12-08] MEDS: MIDODRINE HCL 5MG TABLET PO SCH ×3 (10:07→18:15)
[2019-12-08] MEDS: DEXTROSE 50% WATER 50ML SYRINGE IV PRN ×3 (13:25→18:24)
[2019-12-09] VITALS (19 sets, daily range): BP systolic 0–114; BP diastolic 0–65
[2019-12-09] MEDS: BLOOD SUGAR DIAGNOSTIC STRIP TEST SCH ×4 (00:45→17:59)
[2019-12-09] MEDS: METOCLOPRAMIDE HCL 10MG/2ML VIAL IV SCH ×3 (00:46→17:05)
[2019-12-09] MEDS: DEXTROSE 50% WATER 50ML SYRINGE IV PRN ×2 (08:01→12:38)
[2019-12-09] MEDS: DOXYCYCLINE HYCLATE 100MG CAPSULE PO SCH (08:56)
[2019-12-09] MEDS: MIDODRINE HCL 5MG TABLET PO SCH ×2 (08:56→16:46)
[2019-12-09] MEDS: ASCORBIC ACID 500 MG TABLET PO SCH ×2 (08:56→09:00)
[2019-12-09] MEDS: FLUDROCORTISONE ACETATE 0.1MG TABLET PO SCH (08:56)
[2019-12-09] MEDS ORDERED: DEXTROSE 5% WATER 1,000 ML IV SCH (10:00)
[2019-12-09 11:05] LABS: HEMATOCRIT. 29.8 % (42.0-52.0); HEMOGLOBIN. 9.7 g/dL (14.0-18.0); MEAN CORPUSCULAR HEMOGLOBIN 31.9 pg (28.0-32.0); MEAN CORPUSCULAR VOLUME 98.1 fL (80.0-94.0); MEAN PLATELET VOLUME 9.4 fl (7.4-10.4); RED BLOOD CELL COUNT 3.03 mill/uL (4.7-6.1)
[2019-12-09 11:09] LABS: PLATELET 20 x1000/uL (130-400)
[2019-12-09 11:10] LABS: BASOPHILS % 0.3 % (0.0-2.0); NEUTROPHILS % 84.7 % (40.0-76.0)
[2019-12-09 11:49] LABS: PLATELET ESTIMATE MARKEDLY DECREASED
[2019-12-09] MEDS ORDERED: DEXT 10% WATER 1,000 ML IV SCH (15:00)
[2019-12-09] MEDS ORDERED: PHENYLEPHRINE 20 MG in DEXT 5% WATER 248 ML IV PRN (15:30)
[2019-12-09] MEDS ORDERED: NOREPINEPHRINE 8 MG in DEXT 5% WATER 242 ML IV PRN (15:30)
[2019-12-09] MEDS ORDERED: SODIUM BICARBONATE 8.4% 1 MEQ/ML 50ML SYR IV NR (16:05)
[2019-12-09] MEDS ORDERED: EPINEPHRINE 1 MG in SODIUM CHLORIDE 0.9% 249 ML IV PRN (16:05)
[2019-12-09] MEDS ORDERED: EPINEPHRINE 0.1MG/ML (1:10,000) 10ML SYR ONE (16:10)
[2019-12-09] MEDS ORDERED: SODIUM BICARBONATE 8.4% MEQ/ML 50ML VIAL IV ONE (16:10)
[2019-12-09] MEDS ORDERED: DEXTROSE 50% WATER 50ML VIAL IV ONE (16:10)
[2019-12-09 16:14] LABS: BG CARBOXYHEMOGLOBIN 1.4 % (0.5-1.5); BG DEOXYHEMOGLOBIN 1.3 % (0.0-5.0); BG FRACTION INSPIRED OXYGEN 100; BG HCO3 ACT 13.5 mmol/L (22.0-26.0); BG METHEMOGLOBIN 0.3 % (0.0-1.5); BG OXYGEN SATURATION 98.7 % (92.0-98.5); BG PCO2 37.7 mmHg (35.0-45.0); BG PH 7.171 (7.350-7.450); BG PO2 157.3 mmHg (75.0-100.0); BG SAMPLE SITE RIGHT RADIAL; BG TOTAL HEMOGLOBIN 9.5 g/dL (12.0-18.0); BG VENT MODE VENT - A/C
[2019-12-09] MEDS ORDERED: PHENYLEPHRINE 80 MG in DEXT 5% WATER 492 ML IV PRN (17:15)
[2019-12-09] MEDS ORDERED: NOREPINEPHRINE 16 MG in DEXT 5% WATER 484 ML IV PRN (17:15)
[2019-12-09] MEDS ORDERED: NOREPINEPHRINE 32 MG in DEXT 5% WATER 468 ML IV PRN (17:30)
[2019-12-09] MEDS ORDERED: MORPHINE SULFATE 250 MG in DEXT 5% WATER 240 ML IV PRN (17:45)
[2019-12-09] MEDS ORDERED: VANCOMYCIN 2,000 MG in DEXT 5% WATER 500 ML IV NR (18:30)
[2019-12-09] MEDS ORDERED: MEROPENEM 1,000 MG in SODIUM CHLORIDE 0.9% 100 ML IV SCH (21:00)
[2019-12-10] MEDS ORDERED: VANCOMYCIN 1250MG in DEXTROSE 5% WATER 250ML IV SCH (12:00)
== END 2019-12-09 21:00 | disposition expired | DRG 853 ==
LOC: EDBD 19:19 → ER 19:19 → EDBEDREQSVC 22:23 → EDBEDREQTM 22:29 → EDBEDREQ 22:29 → ENRESERV 10-25 02:38 → CVICU 10-25 03:38 → 3WST 11-01 16:00 → 7WST 11-04 16:20 → 5EST 11-06 21:14 → MICUNO 11-07 08:25 → 5EST 11-25 23:30 → CVICU 12-09 15:20
PROVIDERS: ADMIT Internal Medicine; ATTEND Internal Medicine
PROC: 5A1955Z Respiratory Ventilation, Greater than 96 Consecutive Hours (ICD-10-PCS; principal; 2019-10-25)
PROC: 0BH17EZ Insertion of Endotracheal Airway into Trachea, Via Natural or Artificial Opening (ICD-10-PCS; 2019-10-25)
PROC: 4B02XTZ Measurement of Cardiac Defibrillator, External Approach (ICD-10-PCS; 2019-10-26)
PROC: 0W9D00Z Drainage of Pericardial Cavity with Drainage Device, Open Approach (ICD-10-PCS; 2019-10-28)
PROC: 30233K1 Transfusion of Nonautologous Frozen Plasma into Peripheral Vein, Percutaneous Approach (ICD-10-PCS; 2019-10-28)
PROC: 30233R1 Transfusion of Nonautologous Platelets into Peripheral Vein, Percutaneous Approach (ICD-10-PCS; 2019-10-28)
PROC: 4A10X4Z Monitoring of Central Nervous Electrical Activity, External Approach (ICD-10-PCS; 2019-10-28)
PROC: 04HL33Z Insertion of Infusion Device into Left Femoral Artery, Percutaneous Approach (ICD-10-PCS; 2019-10-28)
PROC: 05HM33Z Insertion of Infusion Device into Right Internal Jugular Vein, Percutaneous Approach (ICD-10-PCS; 2019-10-28)
PROC: B543ZZA Ultrasonography of Right Jugular Veins, Guidance (ICD-10-PCS; 2019-10-28)
PROC: 02HV33Z Insertion of Infusion Device into Superior Vena Cava, Percutaneous Approach (ICD-10-PCS; 2019-11-07)
PROC: B548ZZA Ultrasonography of Superior Vena Cava, Guidance (ICD-10-PCS; 2019-11-07)
PROC: 0D9670Z Drainage of Stomach with Drainage Device, Via Natural or Artificial Opening (ICD-10-PCS; 2019-11-09)
PROC: 5A09457 Assistance with Respiratory Ventilation, 24-96 Consecutive Hours, Continuous Positive Airway Pressure (ICD-10-PCS; 2019-11-15)
PROC: 0W9B30Z Drainage of Left Pleural Cavity with Drainage Device, Percutaneous Approach (ICD-10-PCS; 2019-11-19)
PROC: 5A09357 Assistance with Respiratory Ventilation, Less than 24 Consecutive Hours, Continuous Positive Airway Pressure (ICD-10-PCS; 2019-11-20)
PROC: 5A09357 Assistance with Respiratory Ventilation, Less than 24 Consecutive Hours, Continuous Positive Airway Pressure (ICD-10-PCS; 2019-11-21)
PROC: 5A09357 Assistance with Respiratory Ventilation, Less than 24 Consecutive Hours, Continuous Positive Airway Pressure (ICD-10-PCS; 2019-11-22)
PROC: 06H033Z Insertion of Infusion Device into Inferior Vena Cava, Percutaneous Approach (ICD-10-PCS; 2019-11-24)
PROC: B549ZZA Ultrasonography of Inferior Vena Cava, Guidance (ICD-10-PCS; 2019-11-24)
PROC: 5A1D70Z Performance of Urinary Filtration, Intermittent, Less than 6 Hours Per Day (ICD-10-PCS; 2019-11-24)
PROC: 5A09357 Assistance with Respiratory Ventilation, Less than 24 Consecutive Hours, Continuous Positive Airway Pressure (ICD-10-PCS; 2019-11-25)
PROC: 5A09357 Assistance with Respiratory Ventilation, Less than 24 Consecutive Hours, Continuous Positive Airway Pressure (ICD-10-PCS; 2019-11-26)
PROC: 5A1D70Z Performance of Urinary Filtration, Intermittent, Less than 6 Hours Per Day (ICD-10-PCS; 2019-11-26)
PROC: 5A1D70Z Performance of Urinary Filtration, Intermittent, Less than 6 Hours Per Day (ICD-10-PCS; 2019-11-28)
PROC: 5A09357 Assistance with Respiratory Ventilation, Less than 24 Consecutive Hours, Continuous Positive Airway Pressure (ICD-10-PCS; 2019-11-29)
PROC: 5A09357 Assistance with Respiratory Ventilation, Less than 24 Consecutive Hours, Continuous Positive Airway Pressure (ICD-10-PCS; 2019-11-30)
PROC: 5A1D70Z Performance of Urinary Filtration, Intermittent, Less than 6 Hours Per Day (ICD-10-PCS; 2019-11-30)
PROC: 5A09357 Assistance with Respiratory Ventilation, Less than 24 Consecutive Hours, Continuous Positive Airway Pressure (ICD-10-PCS; 2019-12-02)
PROC: 5A09357 Assistance with Respiratory Ventilation, Less than 24 Consecutive Hours, Continuous Positive Airway Pressure (ICD-10-PCS; 2019-12-03)
PROC: 5A1D70Z Performance of Urinary Filtration, Intermittent, Less than 6 Hours Per Day (ICD-10-PCS; 2019-12-03)
PROC: 5A1D70Z Performance of Urinary Filtration, Intermittent, Less than 6 Hours Per Day (ICD-10-PCS; 2019-12-04)
PROC: 5A1D70Z Performance of Urinary Filtration, Intermittent, Less than 6 Hours Per Day (ICD-10-PCS; 2019-12-07)
PROC: 5A12012 Performance of Cardiac Output, Single, Manual (ICD-10-PCS; 2019-12-09)
PROC: 0BH17EZ Insertion of Endotracheal Airway into Trachea, Via Natural or Artificial Opening (ICD-10-PCS; 2019-12-09)
PROC: 5A1935Z Respiratory Ventilation, Less than 24 Consecutive Hours (ICD-10-PCS; 2019-12-09)
PROC: 5A1D70Z Performance of Urinary Filtration, Intermittent, Less than 6 Hours Per Day (ICD-10-PCS; 2019-12-09)
DX: A41.59 Other Gram-negative sepsis (principal); R65.21 Severe sepsis with septic shock; E43 Unspecified severe protein-calorie malnutrition; K72.00 Acute and subacute hepatic failure without coma; J69.0 Pneumonitis due to inhalation of food and vomit; I50.23 Acute on chronic systolic (congestive) heart failure; J96.01 Acute respiratory failure with hypoxia; N17.0 Acute kidney failure with tubular necrosis; D65 Disseminated intravascular coagulation [defibrination syndrome]; N39.0 Urinary tract infection, site not specified; M62.82 Rhabdomyolysis; D61.818 Other pancytopenia; I31.3 Pericardial effusion (noninflammatory); R18.8 Other ascites; I42.8 Other cardiomyopathies; E11.52 Type 2 diabetes mellitus with diabetic peripheral angiopathy with gangrene; I13.0 Hypertensive heart and chronic kidney disease with heart failure and stage 1 through stage 4 chronic kidney disease, or unspecified chronic kidney disease; I82.622 Acute embolism and thrombosis of deep veins of left upper extremity; I82.B12 Acute embolism and thrombosis of left subclavian vein; K56.600 Partial intestinal obstruction, unspecified as to cause; E87.1 Hypo-osmolality and hyponatremia; K56.7 Ileus, unspecified; G93.40 Encephalopathy, unspecified; J91.8 Pleural effusion in other conditions classified elsewhere; I96 Gangrene, not elsewhere classified; R57.0 Cardiogenic shock; I08.2 Rheumatic disorders of both aortic and tricuspid valves; E11.649 Type 2 diabetes mellitus with hypoglycemia without coma; I27.20 Pulmonary hypertension, unspecified; K74.60 Unspecified cirrhosis of liver; E66.01 Morbid (severe) obesity due to excess calories; Z66 Do not resuscitate; N18.9 Chronic kidney disease, unspecified; E11.22 Type 2 diabetes mellitus with diabetic chronic kidney disease; E11.65 Type 2 diabetes mellitus with hyperglycemia; I25.10 Atherosclerotic heart disease of native coronary artery without angina pectoris; K76.0 Fatty (change of) liver, not elsewhere classified; S90.424A Blister (nonthermal), right lesser toe(s), initial encounter; D63.8 Anemia in other chronic diseases classified elsewhere; E87.5 Hyperkalemia; Z68.27 Body mass index [BMI] 27.0-27.9, adult; Z95.810 Presence of automatic (implantable) cardiac defibrillator; Z91.14 Patient's other noncompliance with medication regimen; Z91.19 Patient's noncompliance with other medical treatment and regimen; S30.0XXA Contusion of lower back and pelvis, initial encounter; I46.9 Cardiac arrest, cause unspecified
CPT/HCPCS: 31500; 32555; 36415; 36600; 71045; 71275; 74018; 74176; 74250; 76604; 76700; 76705; 76770; 76937; 78580; 80048; 80053; 80061; 80076; 80202; 80305; 80320; 81003; 82040; 82140; 82248; 82375; 82550; 82553; 82805; 82947; 82962; 83036; 83605; 83615; 83735; 83880; 84100; 84132; 84134; 84145; 84439; 84443; 84450; 84460; 84478; 84484; 85025; 85027; 85049; 85379; 85384; 86705; 86706; 86709; 86803; 86850; 86900; 86920; 86927; 86945; 87070; 87075; 87076; 87077; 87186; 87340; 87389; 87804; 88108; 88312; 92610; 93005; 93306; 93308; 93923; 93970; 94002; 94003; 94640; 94660; 97110; 97163; 97164; 97167; 97168; 97530; 97535; 99291; A4565; C1725; C1752; C1769; C9113; J0171; J0282; J0330; J0610; J0690; J0696; J0713; J1200; J1265; J1644; J1815; J1940; J1956; J2060; J2185; J2250; J2270; J2370; J2543; J2704; J2765; J3010; J3370; J3430; J3480; J3490; J7030; J7040; J7050; J7060; J7131; P9017; P9034; P9047; Q9963; Q9967; G0480